=== PATIENT | male | born 1965 | race Two or more races ===

== ENCOUNTER 2017-09-30 01:57 | Inpatient (IN) | payer MEDICARE, MEDICAID ==
[~2017-09-30] VITALS: Ht 180.3 cm; Wt 104.3 kg
--- NOTE | 2017-09-30 05:15 | NUR ---
GPS POWER SHEAR OPERATOR NOTES: ADMITTED A 52YO MALE FROM [facility] ON 5150 HOLD FOR DANGER TO SELF. PER HOLD, PATIENT HAS HISTORY OF PSYCH ILLNESS , HAD A PSYCH HOLD 2 WEEKS AGO, COCAINE USE USE, IS HOMELESS, FEELS DEPRESSED, HOPELESS AND TRIED TO OVERDOSE ON MEDICATIONS. PATIENT IS UNDER THE CARE OF DR. MALONE AND DR. GARCIA. PATIENT USHERED TO BED. UPON FACE TO FACE ASSESSMENT, PATIENT PRESENTS ALERT AND ORIENTED X2-3, QUIET, DEPRESSED, TALKS MINIMALLY. APPEARS DISHEVELED AND UNKEMPT. PATIENT REQUESTED FOR FOOD, OFFERED KARI CRACKERS AND MILK, HOWEVER PATIENT REFUSED HE WANTS SOME REAL FOOD. PATIENT NOTED TO BE AGITATED THIS TIME. LIMIT SETTING DONE. REALITY ORIENTATION DONE. PATIENT ADDED, "I AM NOT SIGNING ANY PAPERS UNLESS I EAT" SKIN AND BODY ASSESSMENT- PATIENT REFUSED. PATIENT STATED, "I WILL LET YOU DO IT, UNLESS I EAT ALREADY.PATIENT ALSO REFUSED MRSA SWAB. PATIENT ORIENTED TO UNIT, STAFF, CARE PLAN, HOWEVER PATIENT PRESENTED A BLUNTED AFFECT. GIVEN PATIENT SOME PRIVACY AND QUIET. Q15 MIN CHECK INITIATED. CARE PLAN ACKNOWLEDGED AND INITIATED-SPECIFIC FOR PATIENT. ENVIRONMENTAL SAFETY CHECK DONE. WILL MONITOR PATIENT FOR MOOD, SAFETY AND BEHAVIOR. WILL ENDORSE PATIENT TO DAYSHIFT NURSE.
[2017-09-30] MEDS ORDERED: MAG HYDROX/AL HYDROX/SIMETH 30 ML UDC PO PRN (06:00)
[2017-09-30] MEDS ORDERED: MAGNESIUM HYDROXIDE 30 ML UDC PO PRN (06:00)
[2017-09-30] MEDS ORDERED: LORAZEPAM 0.5 MG TABLET PO PRN (06:00)
[2017-09-30] MEDS ORDERED: ACETAMINOPHEN 325 MG TABLET PO PRN (06:00)
[2017-09-30 06:34] VITALS: BP 109/64
[2017-09-30 09:38] VITALS: BP 177/66
[2017-09-30] MEDS: BENZTROPINE MESYLATE (1 MG) 1 MG TABLET PO SCH ×2 (13:20→16:47)
[2017-09-30] MEDS: ZIPRASIDONE 20 MG CAPSULE PO SCH ×2 (13:20→16:47)
[2017-09-30 16:00] VITALS: BP 128/66
--- NOTE | 2017-09-30 19:30 | NUR ---
GPS RN NOTE, RECEIVED PATIENT AWAKE AND IN BED, NO S/S OR COMPLAINTS OF PAIN AT THIS TIME. PATIENT DISPLAYING NO S/S OF APPARENT DISTRESS AT THIS TIME. PATIENT BREATHING IS UNLABORED WITH EQUAL RISE AND FALL OF THE CHEST. PATIENT IS ALERT AND ORIENTED X 3 ON ROOM AIR WITH A SPO2 98 %. PATIENT IS MED COMPLIANT, CALM, COOPERATIVE, AND NEEDS REORIENTATION AT TIMES. PATIENT DENIES SI AND HI AT THIS TIME. PATIENT ASSISTED WITH TURNING AND REPOSITIONING Q2HR AND PRN FOR COMFORT AND CIRCULATION. PATIENT HAS NO NEEDS AT THIS TIME. PATIENT EDUCATED ON THE USE OF THE CALL MCCARTHY. PATIENT BED SIDE RAILS UP X 2 FOR SAFETY, BED IS LOCKED AND LOW, WILL CONTINUE TO MONITOR THIS PATIENT WITH THE HELP OF STAFF.
[2017-09-30 19:44] VITALS: BP 122/69
[2017-09-30] MEDS: MIRTAZAPINE 15 MG TABLET PO SCH (22:05)
[2017-09-30] MEDS: ZOLPIDEM TARTRATE 5 MG TABLET PO PRN (22:09)
--- NOTE | 2017-09-30 22:09 | NUR ---
GPS RN NOTE, PATIENT HAS A COMPLAINT OF NOT BEING ABLE TO SLEEP AND IS REQUESTING AMBIEN AT THIS TIME. PATIENT VITAL SIGNS ARE STABLE. GAVE AMBIEN 5MG PO HS ORDERED. WILL REASSESS FOR INSOMNIA AND I WILL CONTINUE TO MONITOR THIS PATIENT.
[2017-10-01 08:00] VITALS: BP 104/75
[2017-10-01 08:54] LABS: BASOPHILS % (AUTO) 0.6 % (0.0-2.0); EOSINOPHILS # (AUTO) 0.1 /CMM (0.0-0.7); EOSINOPHILS % (AUTO) 2.4 % (0.0-6.0); HEMATOCRIT 41 % (39-51); HEMOGLOBIN 13.7 g/dL (13.5-17.5); LYMPHOCYTES # (AUTO) 1.5 /CMM (0.8-4.8); LYMPHOCYTES % (AUTO) 31.2 % (20.0-44.0); MEAN CORPUSCULAR HEMOGLOBIN 28 PG (26.0-33.0); MEAN CORPUSCULAR HGB CONC 34 g/dl (31.0-36.0); MEAN CORPUSCULAR VOLUME 85 fL (80-96); MONOCYTES # (AUTO) 0.4 /CMM (0.1-1.30); MONOCYTES % (AUTO) 8.3 % (2.0-12.0); NEUTROPHILS # (AUTO) 2.8 /CMM (1.8-8.9); NEUTROPHILS % (AUTO) 57.5 % (43.0-81.0); PLATELET COUNT (AUTO) 340 /CMM (150-450); RDW COEFFICIENT OF VARIATION 14.3 (11.5-15.0); RED BLOOD CELL COUNT(AUTO) 4.84 MIL/uL (4.5-6.0); WHITE BLOOD COUNT (AUTO) 4.8 K/uL (4.3-11.0)
[2017-10-01 08:56] LABS: ALBUMIN 3.3 g/dL (3.4-5.0); BILIRUBIN,TOTAL 0.3 mg/dL (0.2-1.0); CALCIUM, SERUM 8.7 mg/dL (8.5-10.1); CREATININE 1.1 mg/dL (0.6-1.3); TOTAL PROTEIN, SERUM 7.4 g/dL (6.4-8.2)
[2017-10-01] MEDS: BENZTROPINE MESYLATE (1 MG) 1 MG TABLET PO SCH ×3 (09:29→16:06)
[2017-10-01] MEDS: ZIPRASIDONE 20 MG CAPSULE PO SCH ×2 (09:29→16:06)
[2017-10-01 16:25] VITALS: BP 118/90
[2017-10-01 20:16] VITALS: BP 133/76
[2017-10-01] MEDS: MIRTAZAPINE 15 MG TABLET PO SCH (22:00)
[2017-10-01] MEDS: ZOLPIDEM TARTRATE 5 MG TABLET PO PRN (22:18)
[2017-10-02 08:00] VITALS: BP 117/85
[2017-10-02] MEDS: ZIPRASIDONE 20 MG CAPSULE PO SCH ×2 (08:24→16:13)
[2017-10-02] MEDS: BENZTROPINE MESYLATE (1 MG) 1 MG TABLET PO SCH ×3 (08:24→16:13)
[2017-10-02 15:51] VITALS: BP 123/78
[2017-10-02 20:13] VITALS: BP 126/76
[2017-10-02] MEDS: MIRTAZAPINE 15 MG TABLET PO SCH (22:04)
[2017-10-02] MEDS: ZOLPIDEM TARTRATE 5 MG TABLET PO PRN (22:06)
[2017-10-03 08:00] VITALS: BP 120/74
[2017-10-03] MEDS: ZIPRASIDONE 20 MG CAPSULE PO SCH ×2 (08:28→16:47)
[2017-10-03] MEDS: BENZTROPINE MESYLATE (1 MG) 1 MG TABLET PO SCH ×3 (08:28→16:46)
--- NOTE | 2017-10-03 15:53 | NUR ---
Initial Discharge: Pt reports being homeless. Pt has no telephone #. Pt denies having any family to contact for support. Pt agrred to locating placement upon discharge. SW will follow up to evaluate his options.
[2017-10-03 15:57] VITALS: BP 106/67
--- NOTE | 2017-10-03 17:19 | NUR ---
RN Note: Patient states he is anxious and nervous. ativan 05.mg given for anxiety.
[2017-10-03 20:00] VITALS: BP 99/57
[2017-10-03] MEDS: MIRTAZAPINE 15 MG TABLET PO SCH (21:02)
[2017-10-03] MEDS: ZOLPIDEM TARTRATE 5 MG TABLET PO PRN (21:50)
[2017-10-04 08:00] VITALS: BP 104/65
[2017-10-04] MEDS: BENZTROPINE MESYLATE (1 MG) 1 MG TABLET PO SCH ×2 (08:26→12:08)
[2017-10-04] MEDS: ZIPRASIDONE 20 MG CAPSULE PO SCH (08:26)
--- NOTE | 2017-10-04 10:16 | NUR ---
Rn note: patient states he has neck pain when he walks around. 3/10 pain. acetaminophen 650 mg given.
--- NOTE | 2017-10-04 13:00 | NUR ---
RN-CO: Patient is alert and oriented x4, able to make decision, ambulatory and self care. Upon face to face assessment, he denied suicidal and homicidal ideation. Denied auditory and visual hallucination. Calm , and compliant with medications.
--- NOTE | 2017-10-04 14:00 | NUR ---
RN-CO: DR MALONE SEEN AND EXAMINED THE PATIENT AND ORDERED TO DISCONTINUE HOLD AND DISCHARGE THE PATIENT TODAY, NOTED. DEISY ARECHIGA ROUGH CARPENTER MEDICALLY CLEAR THE PATIENT FOR DISCHARGE.
--- NOTE | 2017-10-04 15:08 | NUR ---
RN-CO: Patient refused placement, he stated " I will go to [facility] for check up and I will look for a snf. " I don't need prescription from the psychiatrist." "I refused to have the discharge paper works , It's just junk and I'll throw it anyway." " I just need tokens to go to [facility]." I am not suicidal and I am never homicidal." Dr Patricia made aware. Patient's affect is appropriate.
--- NOTE | 2017-10-04 15:15 | NUR ---
RN-CO: Patient was provided list and addresses and contact number of shelters. Token given. All belongings given back to the patient
--- NOTE | 2017-10-04 15:25 | NUR ---
RN NOTE: PATIENT STATES HE WANTS TO LEAVE. HE STATES HE WILL GO TO [facility] AND THEN TO THE GROUP HOME.
--- NOTE | 2017-10-04 15:40 | NUR ---
RN-CO: PATIENT WAS ESCORTED BY STAFF TO THE LOBBY WITH ALL HIS BELONGINGS AND TOKENS. WE PROVIDED HIM THE COPY OF THE SHELTERS.
--- NOTE | 2017-10-04 16:22 | NUR ---
Discharge Planning: ALMA ROSA faxed inquiry to [facility] for discharge planning purposes. Pt has been cleared for discharge. ALMA ROSA coordinated for Johnny from [facility] to come and assess pts appropriateness for their facility on this date. Pt agreed to be discharged on this day to the facility. ALMA ROSA will make arrangements in order to discharge pt to facility on this date.
--- NOTE | 2017-10-04 16:31 | NUR ---
Discharge Note: ALMA ROSA made arrangements with [facility] to transport pt to [facility], [facility] [address] [place] [address] today at 4pm (trip number [id number]). Addendum: 10/04/17 at [address] Discharge Planning:
--- NOTE | 2017-10-04 16:37 | NUR ---
Discharge Note: ALMA ROSA met with pt to inform him of the discharge plans (i.e. ambulance arriving at 4pm to transport him to [facility]) at which time pt refused to go. Pt reported to ALMA ROSA, "I don't want to go to that place." Pt was adamant about going to [facility]. Pt asked, "Just let me out to the streets, that's where I want to go." ALMA ROSA attempted to persuade pt to give the SNF an opportunity and if he did not like it, it was up to him to remain there. Pt refused and stated, "You're not gonna get me to go there." SW explored winter shelters in the area as an alternative (which pt denied). ALMA ROSA informed pt that [facility] rehab staff would be willing to take pt to look for his wallet once he was settled at the facility (pt believes his wallet was left at the [facility]), per their reports. Pt adamantly refused and stated, "I'm not going there." Pt was discharged around 3pm and provided with 2 bus tokens (i.e. for the nearest long term pick pulling machine operator location; Bus stop, [address] which he accepted. Pt also signed the homeless waiver. Pt was also provided with the following resources: [facility] [id number] Schedule, [facility], [address] [facility] [address]; , [facility] (chemical dependency Prog) [address] [place] [place] [address]; and [facility] (addiction and drug rehab centers) [facility] [address] [place] [address]; and [facility], [address] [facility]. [address] [facility] [id number] . Copies were provided and accepted by pt. Pt agreed to utilize the referrals that were provided to him if he needed them.
== END 2017-10-04 15:40 | disposition home or self-care (01) | DRG 885 ==
LOC: GPS 05:09
PROVIDERS: ADMIT Psychiatry & Neurology Psychosomatic Medicine; ATTEND Internal Medicine
DX: F20.9 Schizophrenia, unspecified (principal); F33.0 Major depressive disorder, recurrent, mild; Z73.6 Limitation of activities due to disability; G24.01 Drug induced subacute dyskinesia; T40.5X5A Adverse effect of cocaine, initial encounter; Y92.89 Other specified places as the place of occurrence of the external cause; Z91.5 Personal history of self-harm; Z59.0 Homelessness
CPT/HCPCS: 36415; 80053-TC; 80061-TC; 85025-TC; Z7610

== ENCOUNTER 2019-01-07 16:58 | Inpatient (IN) | payer MEDICARE, MEDICAID ==
[~2019-01-07] VITALS: Ht 182.9 cm; Wt 113.4 kg
--- NOTE | 2019-01-07 18:53 | NUR ---
CALLED FOR TRIAGE NOT IN THE WAITING ROOM.
--- NOTE | 2019-01-07 19:02 | NUR ---
CALLED FOR TRIAGE NOT IN THE WAITING ROOM
[2019-01-07] MEDS ORDERED: diphenhydrAMINE HCL 50 MG/ML VIAL IM ONE (20:00)
[2019-01-07] MEDS ORDERED: diphenhydrAMINE HCL 50 MG/ML VIAL ONE (20:01)
[2019-01-07 20:25] LABS: BASOPHILS % (AUTO) 0.5 % (0.0-2.0); EOSINOPHILS % (AUTO) 1.9 % (0.0-6.0); HEMATOCRIT 40 % (39-51); HEMOGLOBIN 13.1 g/dL (13.5-17.5); LYMPHOCYTES # (AUTO) 2.1 /CMM (0.8-4.8); LYMPHOCYTES % (AUTO) 29.9 % (20.0-44.0); MEAN CORPUSCULAR HGB CONC 33 g/dl (31.0-36.0); MEAN CORPUSCULAR VOLUME 86 fL (80-96); MONOCYTES # (AUTO) 0.6 /CMM (0.1-1.30); MONOCYTES % (AUTO) 8.5 % (2.0-12.0); NEUTROPHILS # (AUTO) 4.2 /CMM (1.8-8.9); NEUTROPHILS % (AUTO) 59.2 % (43.0-81.0); PLATELET COUNT (AUTO) 268 /CMM (150-450); RED BLOOD CELL COUNT(AUTO) 4.65 MIL/uL (4.5-6.0)
[2019-01-07 20:32] LABS: CALCIUM, SERUM 8.4 mg/dL (8.5-10.1); CARBON DIOXIDE 28 mmol/L (21-32); CHLORIDE 107 mmol/L (98-107); CREATININE 1.2 mg/dL (0.6-1.3); GLUCOSE 77 mg/dL (74-106); POTASSIUM 3.9 mmol/L (3.5-5.1); SODIUM SERUM 140 mmol/L (136-145); UREA NITROGEN, BLOOD 24 mg/dL (7-18)
[2019-01-07 20:38] LABS: ALANINE AMINOTRANSFERASE 38 U/L (12-78); ALBUMIN 3.7 g/dL (3.4-5.0); ALKALINE PHOSPHATASE 61 U/L (46-116); ASPARTATE AMINOTRANSFERASE 27 U/L (15-37); BILIRUBIN,DIRECT 0.1 mg/dL (0.0-0.2); BILIRUBIN,TOTAL 0.3 mg/dL (0.2-1.0); TOTAL PROTEIN, SERUM 7.4 g/dL (6.4-8.2)
[2019-01-07 20:40] LABS: ACETAMINOPHEN 0 ug/ml (10-30); ALCOHOL, BLOOD < 3 mg/dL (0-0); SALICYLATE 0.8 mg/dL (2.8-20.0)
[2019-01-07 21:07] LABS: APPEARANCE,URINE Clear (CLEAR); BILIRUBIN,URINE Negative (NEGATIVE); BLOOD, URINE Negative Ery/uL (NEGATIVE); COLOR,URINE Yellow (YELLOW); KETONES,URINE Trace (NEGATIVE); LEUKOCYTE ESTERASE ,URINE Negative (NEGATIVE); NITRITE, URINE Negative (NEGATIVE); PH,URINE 6.5 (5.0-8.0); PROTEIN,URINE Negative (NEGATIVE); UGLUCOSE Negative (NEGATIVE)
[2019-01-07] MEDS ORDERED: ZIPR60CA2 PO (22:22)
--- NOTE | 2019-01-07 22:49 | NUR ---
report given for conitnuation of care to gps rn .
--- NOTE | 2019-01-07 23:15 | NUR ---
GPS-PIPE BENDING MACHINE OPERATOR NOTES: ADMITTED A 53 YR-OLD, MALE, HOMELESS, ADMITTED ON 5150 FOR DTS. PER HOLD, PATIENT COMPLAINING OF SUICIDAL IDEATION. PATIENT STATED "I'M NOT DOING WELL VOICES ARE TELLING ME TO TAKE MY LIFE PATIENT HAS A PLAN TO SHOOT HIMSELF WITH A GUN. NON-COMPLIANT WITH MEDICATIONS. UPON FACE TO FACE ASSESSMENT, PATIENT IS ALERT, ORIENTED X3, DEPRESSED, QUIET, INTERACTS WHEN ENGAGED, DENIES SI/HI AT THIS TIME. PATIENT STILL HEARING VOICES, DAUGHTER WAS TELLING HIM SHE'S . REALITY ORIENTATION PROVIDED. AMBULATES INDEPENDENTLY. IN NO APPARENT DISTRESS NOTED. NO C/O PAIN OR DISCOMFORT NOTED. BELONGINGS WERE INVENTORIED AND CHECKED FOR CONTRABAND. PT. IS UNDER THE PSYCHIATRIC CARE OF DR. ORTEGA ORDERS OBTAINED, AND UNDER THE MEDICAL CARE OF MILTON CUEVAS NOTIFIED OF PT'S ADMISSION. SKIN IS INTACT. NO FAMILY TO NOTIFY. BED LOCKED AND PLACED ON LOWEST POSITION TO MAINTAIN SAFETY. FALL PRECAUTIONS IMPLEMENTED. WILL CONTINUE TO MONITOR Q15 MINS. FOR SAFETY AND BEHAVIOR.
[2019-01-07 23:30] VITALS: BP 108/66
[2019-01-08] MEDS ORDERED: MAG HYDROX/AL HYDROX/SIMETH 30 ML UDC PO PRN
[2019-01-08] MEDS ORDERED: MAGNESIUM HYDROXIDE 30 ML UDC PO PRN
[2019-01-08] MEDS ORDERED: ACETAMINOPHEN 325 MG TABLET PO PRN
[2019-01-08] MEDS ORDERED: BENZ1TAB7 PO (02:33)
[2019-01-08 08:00] VITALS: BP 108/71
[2019-01-08 08:17] LABS: CHOLESTEROL 126 mg/dL (<200); HDL CHOLESTEROL 52 mg/dL (40-60); LDL 74 mg/dL (0-99); TRIGLYCERIDES 45 mg/dL (30-150)
[2019-01-08] MEDS ORDERED: ZIPRASIDONE 20 MG CAPSULE PO SCH (09:30)
--- NOTE | 2019-01-08 10:23 | NUR ---
SW received a call from Rowan, suicide laboratory coordinator at [facility] Address: [address], [place] [address] ex:[phone] to inform SW that pt has been flagged as a high risk suicide patient and stated that she would like to be notified of pts discharge.
[2019-01-08] MEDS: BENZTROPINE MESYLATE (1 MG) 1 MG TABLET PO SCH ×2 (10:34→16:44)
[2019-01-08] MEDS: ZIPRASIDONE 20 MG CAPSULE PO SCH ×2 (10:34→16:44)
--- NOTE | 2019-01-08 12:03 | NUR ---
INITIAL DISCHARGE PLAN: Pt needs placement. SW will help form a safe and proper discharge in collaboration with MD.
[2019-01-08 16:00] VITALS: BP 119/67
--- NOTE | 2019-01-08 19:42 | NUR ---
recieved patient in bed eyes closed appears asleep
[2019-01-08 20:00] VITALS: BP 105/55
[2019-01-08] MEDS: TEMAZEPAM 7.5 MG CAPSULE PO PRN (21:52)
--- NOTE | 2019-01-09 05:12 | NUR ---
CLOSING NOTES: ASLEEP AT THIS TIME. AWAKE AT 2AM AND AMBULATED 1X AROUND THE HALLWAY AND THEN WENT BACK TO BED. SLEPT 9 HOURS OF THE NIGHT. WEARS EYEGLASSES NOTED SLEEPS WITH THEM ON.
[2019-01-09 08:00] VITALS: BP 109/65
[2019-01-09] MEDS: ZIPRASIDONE 20 MG CAPSULE PO SCH ×2 (08:18→16:46)
[2019-01-09] MEDS: BENZTROPINE MESYLATE (1 MG) 1 MG TABLET PO SCH ×2 (08:18→16:45)
[2019-01-09] MEDS: LORAZEPAM 0.5 MG TABLET PO PRN (18:10)
--- NOTE | 2019-01-09 18:18 | NUR ---
GPS/RN-NOTES PATIENT IN THE DAY ROOM WATCHING TV. STATED" CAN I HAVE ATIVAN I'M ANXIOUS". ATIVAN 0.5MG P.O GIVEN PRN ORDERED. WILL ENDORSE TO INCOMING NURSE FOR CONTINUITY OF CARE.
[2019-01-09 20:00] VITALS: BP 110/54
[2019-01-09] MEDS: TEMAZEPAM 7.5 MG CAPSULE PO PRN (21:06)
[2019-01-10 08:00] VITALS: BP 104/58
[2019-01-10] MEDS: ZIPRASIDONE 20 MG CAPSULE PO SCH ×2 (08:24→17:07)
[2019-01-10] MEDS: BENZTROPINE MESYLATE (1 MG) 1 MG TABLET PO SCH ×2 (08:25→17:07)
[2019-01-10 16:00] VITALS: BP 110/52
[2019-01-10 20:00] VITALS: BP 107/65
[2019-01-10] MEDS: LORAZEPAM 0.5 MG TABLET PO PRN (20:58)
[2019-01-10] MEDS: TEMAZEPAM 7.5 MG CAPSULE PO PRN (22:18)
[2019-01-11 08:00] VITALS: BP 102/52
[2019-01-11] MEDS: BENZTROPINE MESYLATE (1 MG) 1 MG TABLET PO SCH ×2 (08:53→17:17)
[2019-01-11] MEDS: ZIPRASIDONE 20 MG CAPSULE PO SCH ×2 (08:57→17:18)
[2019-01-11 16:00] VITALS: BP 117/70
[2019-01-11 19:50] VITALS: BP 129/70
[2019-01-11] MEDS: LORAZEPAM 0.5 MG TABLET PO PRN (19:55)
[2019-01-11] MEDS: TEMAZEPAM 7.5 MG CAPSULE PO PRN (22:49)
[2019-01-12 08:00] VITALS: BP 154/66
[2019-01-12] MEDS: ZIPRASIDONE 20 MG CAPSULE PO SCH ×2 (08:35→16:29)
[2019-01-12] MEDS: BENZTROPINE MESYLATE (1 MG) 1 MG TABLET PO SCH ×2 (08:35→16:30)
--- NOTE | 2019-01-12 09:43 | NUR ---
SNF REFERRAL: SW faxed SNF referral to TORIBIO, admissions consultant at [facility] Address: [address] [place] [address] for review.
--- NOTE | 2019-01-12 10:34 | NUR ---
SW received call from TORIBIO, wardrobe coordinator at [facility] Address: [address] [place] [address] stating pt has been accepted to their facility with SI clearance.
--- NOTE | 2019-01-12 14:05 | NUR ---
ALMA ROSA received a phone call from Gabby Padgett from [facility] [phone] stating pt is currently on parole and has an ankle monitor due to failure to register as a sex offender. Per Gabby Padgett pt was placed on a sex offenders list due to indecent exposure and has been on [place] since 10/16/18. ALMA ROSA informed him that pt has been accepted to [facility] and will notify him as soon as ALMA ROSA has a D/C order.
[2019-01-12 16:00] VITALS: BP 100/56
[2019-01-12 20:18] VITALS: BP 110/55
[2019-01-12] MEDS: LORAZEPAM 0.5 MG TABLET PO PRN (20:20)
[2019-01-12] MEDS: TEMAZEPAM 7.5 MG CAPSULE PO PRN (22:48)
[2019-01-13 08:00] VITALS: BP 134/90
[2019-01-13] MEDS: BENZTROPINE MESYLATE (1 MG) 1 MG TABLET PO SCH ×2 (08:35→16:36)
[2019-01-13] MEDS: ZIPRASIDONE 20 MG CAPSULE PO SCH ×2 (08:35→16:37)
--- NOTE | 2019-01-13 15:24 | NUR ---
SUPPORTIVE COUNSELING: SW spoke with pt regarding his discharge pt agrees to be discharged to a SNF and also stated he no longer had suicidal/homicidal ideations. Pt also denied visual/auditory hallucinations but SW has observed pt responding to internal stimuli pt has been talking to himself. Pt is isolated and withdrawn but does go to activity room and watches TV or reads a book. Pt has not attended group therapy.
[2019-01-13 16:00] VITALS: BP 125/68
[2019-01-13 20:03] VITALS: BP 98/57
[2019-01-13] MEDS: TEMAZEPAM 7.5 MG CAPSULE PO PRN (23:59)
--- NOTE | 2019-01-14 00:02 | NUR ---
GPS RN NOTE, PATIENT HAS A COMPLAINT OF NOT BEING ABLE TO SLEEP AND IS REQUESTING RESTORIL AT THIS TIME. PATIENT VITAL SIGNS ARE STABLE. GAVE RESTORIL 7.5MG PO HS PRN ORDERED. WILL REASSESS FOR ANXIETY AND I WILL CONTINUE TO MONITOR THIS PATIENT.
[2019-01-14 08:00] VITALS: BP 135/64
[2019-01-14] MEDS: BENZTROPINE MESYLATE (1 MG) 1 MG TABLET PO SCH ×2 (08:07→16:36)
[2019-01-14] MEDS: ZIPRASIDONE 20 MG CAPSULE PO SCH ×2 (08:07→16:35)
--- NOTE | 2019-01-14 15:50 | NUR ---
GROUP THERAPY: SW encouraged pt to attend group therapy, pt stated he wanted to stay in his room. Pt has been withdrawn and isolated and has not been seen interacting with others on this present day.
[2019-01-14 16:00] VITALS: BP 111/67
[2019-01-14 20:00] VITALS: BP 110/60
[2019-01-14] MEDS: TEMAZEPAM 7.5 MG CAPSULE PO PRN (23:29)
--- NOTE | 2019-01-15 06:43 | NUR ---
DR. ORTEGA GAVE AN ORDER TO D/C HOLD AND D/C TO [facility], TO CONTINUE SAME MEDS INCLUDING PRN AND TO FOLLOW UP WITH PSYCH AND MEDICAL DOCTORS.
[2019-01-15 08:00] VITALS: BP 117/59
[2019-01-15] MEDS: BENZTROPINE MESYLATE (1 MG) 1 MG TABLET PO SCH (08:37)
[2019-01-15] MEDS: ZIPRASIDONE 20 MG CAPSULE PO SCH (08:37)
--- NOTE | 2019-01-15 11:09 | NUR ---
DISCHARGE NOTE: Pt will be discharged at 12:30pm via [facility] trip#[phone] to [facility] Address: [address] [place] [address] . Pts has no family to notify. Pts mood is euthymic with congruent affect. Pt denied visual/auditory hallucination and denied suicidal/homicidal ideation. Pt will address his substance use and continue psychiatric treatment with Psychiatrist: Dr. Raya Address: [address] [place] [address] pt will also be under the care of [employer]lower [employer] Laborer/Designer: Dr Giordano Address: [address] [address] [phone]. For smoking cessation, patient was referred to the [employer] and [employer] [id number]. Pt will also participate in a telephone meeting with [employer] [phone] on Wednesday January 16, 2019 at 8:00am. The multidisciplinary exitcare form was done, printed, signed, and given to the patient. Addendum: 01/15/19 at 1246 by ARMIDA TS ALMA ROSA received a phone call from TORIBIO, case management coordinator at [facility] stating that pt was denied due to him having an ankle bracelet and being on parole. Pt was discharged to [facility] Address: [address] [place] [address] . No family to notify. Psychiatrist: Dr. John Armstrong [address], [place] [address] [phone] Flower Shop Laborer/Designer: Dr. Brian Moore [address], [place] [address] [phone].
--- NOTE | 2019-01-15 11:09 | NUR ---
ALMA ROSA contacted Agent Dayron from [facility] [phone] and left a voicemail informing him pt was being discharged on this present day to [facility].
--- NOTE | 2019-01-15 12:48 | NUR ---
ALMA ROSA contacted Agent Dayron from [facility] [phone] and left a voicemail informing him pt was being discharged to [facility] instead of [facility].
--- NOTE | 2019-01-15 13:23 | NUR ---
RN NOTE: PATIENT DC @ 13:00 VIA GURNEY VIA AMBULANCE TO [facility]. [address] [place] [address]. REPORT WAS GIVEN TO KAELA [phone]. PATIENT WAS ALERT AND ORIENTED X3 AT THE TIME OF DISCHARGE. NO DISTRESS NOTED. VS STABLE. NO COMPLAINTS. DENIES SI/HI AT TIME OF DC. DC ORDER WAS GIVEN BY DR. EDUARDO. PATIENT IS MEDICALLY STABLE FOR DC BY DR. POLO. PATIENT WAS COOPERATIVE WITH THE DC PROCESS. SKIN CHECK WAS REFUSED. BELONGINGS RETURNED TO PATIENT. REPORT GIVEN TO EMT.
--- NOTE | 2019-02-02 14:27 | NUR ---
SUBSTANCE ABUSE FOLLOW UP: Pt excluded due to D/C to SNF.
== END 2019-01-15 13:00 | DRG 885 ==
LOC: ER 17:00 → GPS 22:36
PROVIDERS: ADMIT Psychiatry & Neurology Psychiatry; ATTEND Nurse Practitioner Acute Care
DX: F20.0 Paranoid schizophrenia (principal); N17.9 Acute kidney failure, unspecified; F29 Unspecified psychosis not due to a substance or known physiological condition; F43.10 Post-traumatic stress disorder, unspecified; Z68.33 Body mass index [BMI] 33.0-33.9, adult; E66.9 Obesity, unspecified; Z59.0 Homelessness; F14.10 Cocaine abuse, uncomplicated; F17.210 Nicotine dependence, cigarettes, uncomplicated; G24.01 Drug induced subacute dyskinesia; T43.4X Poisoning by, adverse effect of and underdosing of butyrophenone and thiothixene neuroleptics
CPT/HCPCS: 36415; 80048-TC; 80061-TC; 80076-TC; 80305; 81000-TC; 85025-TC; 87081-TC; G0480; J1200

== ENCOUNTER 2019-11-17 01:23 | Emergency (ER) | payer MEDICAID, MEDICARE ==
[~2019-11-17] VITALS: Ht 175.3 cm; Wt 99.8 kg
--- NOTE | 2019-11-17 01:25 | NUR ---
Salazar aguiar in ED - 11/17/19 at 0441 by SUDHAKAR PT NOW REPORTS SI WITH PLAN TO WALK INTO TRAFFIC TO ER MD
--- NOTE | 2019-11-17 02:00 | NUR ---
TO ER BED 12 AMBULATORY C/O SI WITH PLAN TO CHOKE SELF WITH BELT. PT AAOX4 NO ACUTE DISTRESS NOTED, RESP EVEN AND UNLABORED. PT CALM AND COOPERATIVE AT THIS TIME. PENDING ER MD FRAUSTO.
--- NOTE | 2019-11-17 02:16 | NUR ---
PT NOW REPORTS SI WITH PLAN TO WALK INTO TRAFFIC TO ER MD. PT REQUESTING ANN.
--- NOTE | 2019-11-17 02:31 | NUR ---
TYPING POOL SUPERVISOR AT BEDSIDE FOR BLOOD DRAW.
[2019-11-17] MEDS ORDERED: BENZTROPINE MESYLATE (1 MG) 1 MG TABLET ONE (02:40)
--- NOTE | 2019-11-17 02:51 | NUR ---
URINE SAMPLE COLLECTED AND SENT TO LAB.
[2019-11-17] MEDS ORDERED: LORAZEPAM 1 MG TABLET ONE (02:56)
--- NOTE | 2019-11-17 02:58 | NUR ---
PT MEDICATED PER ER MD ORDER.
[2019-11-17] MEDS ORDERED: BENZTROPINE MESYLATE (1 MG) 1 MG TABLET PO ONE (03:00)
[2019-11-17] MEDS ORDERED: LORAZEPAM 1 MG TABLET PO ONE (03:00)
[2019-11-17 03:11] LABS: BASOPHILS % (AUTO) 0.5 % (0.0-2.0); HEMATOCRIT 40 % (39-51); HEMOGLOBIN 12.7 g/dL (13.5-17.5); LYMPHOCYTES # (AUTO) 2.3 /CMM (0.8-4.8); LYMPHOCYTES % (AUTO) 31.9 % (20.0-44.0); MEAN CORPUSCULAR HGB CONC 32 g/dl (31.0-36.0); MEAN CORPUSCULAR VOLUME 85 fL (80-96); MONOCYTES % (AUTO) 13.6 % (2.0-12.0); NEUTROPHILS # (AUTO) 3.8 /CMM (1.8-8.9); PLATELET COUNT (AUTO) 343 /CMM (150-450); WHITE BLOOD COUNT (AUTO) 7.2 K/uL (4.3-11.0)
[2019-11-17 03:13] LABS: APPEARANCE,URINE CLEAR (CLEAR); BILIRUBIN,URINE NEGATIVE (NEGATIVE); BLOOD, URINE NEGATIVE Ery/uL (NEGATIVE); COLOR,URINE YELLOW (YELLOW); KETONES,URINE NEGATIVE (NEGATIVE); LEUKOCYTE ESTERASE ,URINE NEGATIVE (NEGATIVE); NITRITE, URINE NEGATIVE (NEGATIVE); PROTEIN,URINE NEGATIVE (NEGATIVE); UGLUCOSE NEGATIVE (NEGATIVE)
[2019-11-17 03:24] LABS: CALCIUM, SERUM 8.6 mg/dL (8.5-10.1); CARBON DIOXIDE 26 mmol/L (21-32); CHLORIDE 105 mmol/L (98-107); CREATININE 1.1 mg/dL (0.6-1.3); GLUCOSE 94 mg/dL (74-106); POTASSIUM 3.9 mmol/L (3.5-5.1); SODIUM SERUM 140 mmol/L (136-145); UREA NITROGEN, BLOOD 11 mg/dL (7-18)
[2019-11-17 03:29] LABS: ALANINE AMINOTRANSFERASE 28 U/L (12-78); ALBUMIN 3.2 g/dL (3.4-5.0); ALCOHOL, BLOOD < 3 mg/dL (0-0); ALKALINE PHOSPHATASE 43 U/L (46-116); ASPARTATE AMINOTRANSFERASE 25 U/L (15-37); BILIRUBIN,DIRECT 0.1 mg/dL (0.0-0.2); BILIRUBIN,TOTAL 0.4 mg/dL (0.2-1.0); TOTAL PROTEIN, SERUM 7.2 g/dL (6.4-8.2)
[2019-11-17 03:32] LABS: ACETAMINOPHEN 0 ug/ml (10-30); SALICYLATE 0.6 mg/dL (2.8-20.0)
--- NOTE | 2019-11-17 03:58 | NUR ---
PT MEDICALLY CLEARED FOR VOLUNTARY PSYCH ADMISSION PER ER MD FELDER. WILL FAX CLINICAL TO [facility].
--- NOTE | 2019-11-17 04:10 | NUR ---
CLINICAL FAXED TO [facility] FOR VOLUNTARY ADMISSION.
--- NOTE | 2019-11-17 04:47 | NUR ---
PT ASLEEP, NO ACUTE DISTRESS NOTED, RESP EVEN AND UNLABORED. CALL LIGHT WITHIN REACH. WILL CONTINUE TO MONITOR PT CLOSELY.
--- NOTE | 2019-11-17 07:03 | NUR ---
PT IS ACCEPTED AT [facility] # FOR REPORT: [phone] ACCEPTING MD: DR. GLEASON
--- NOTE | 2019-11-17 07:15 | NUR ---
CALLED [facility] AND ATRRANGED TRANSPORTATION . ETA [phone]
[2019-11-17 08:46] VITALS: BP 121/64
== END 2019-11-17 08:47 ==
LOC: ER 01:24
DX: F32.9 Major depressive disorder, single episode, unspecified (principal); R45.851 Suicidal ideations; G24.01 Drug induced subacute dyskinesia; F14.10 Cocaine abuse, uncomplicated; F43.10 Post-traumatic stress disorder, unspecified; F20.9 Schizophrenia, unspecified; Z88.8 Allergy status to other drugs, medicaments and biological substances; Z60.2 Problems related to living alone
CPT/HCPCS: 36415; 80048; 80076; 80305; 80307; 80329; 81001; 85025; 99285; G0480; 81000-TC

== ENCOUNTER 2020-03-29 13:41 | Emergency (ER) | payer MEDICARE, MEDICAID ==
[~2020-03-29] VITALS: Ht 175.3 cm; Wt 100.7 kg
--- NOTE | 2020-03-29 14:01 | NUR ---
JENNIFER FROM [facility] (PT IS NOT ADMITTED JUST WALKED IN) TO ER BED 13. AAOX4. NOT IN RESP DISTRESS. CAME IN FOR INVOLUNTARY MOVEMENT. PT IS NOTED WITH TARDIVE DYSKENISIA. TAMMIE AT THE BEDSIDE FOR EVAL. ORDERS RECEIVED NOTED AND CARRIED OUT.
[2020-03-29 14:46] LABS: BASOPHILS % (AUTO) 0.2 % (0.0-2.0); EOSINOPHILS % (AUTO) 0.1 % (0.0-6.0); HEMATOCRIT 44 % (39-51); LYMPHOCYTES # (AUTO) 0.5 /CMM (0.8-4.8); LYMPHOCYTES % (AUTO) 5.6 % (20.0-44.0); MEAN CORPUSCULAR HGB CONC 32 g/dl (31.0-36.0); MEAN CORPUSCULAR VOLUME 86 fL (80-96); MONOCYTES # (AUTO) 0.4 /CMM (0.1-1.30); MONOCYTES % (AUTO) 4.4 % (2.0-12.0); NEUTROPHILS # (AUTO) 7.7 /CMM (1.8-8.9); NEUTROPHILS % (AUTO) 89.7 % (43.0-81.0); PLATELET COUNT (AUTO) 219 /CMM (150-450); RED BLOOD CELL COUNT(AUTO) 5.19 MIL/uL (4.5-6.0); WHITE BLOOD COUNT (AUTO) 8.6 K/uL (4.3-11.0)
[2020-03-29] MEDS ORDERED: OLANZAPINE 10 MG VIAL IM ONE ×2 (15:00→15:26)
[2020-03-29] MEDS ORDERED: diphenhydrAMINE HCL 50 MG/ML VIAL IM ONE (15:00)
[2020-03-29 15:05] LABS: CALCIUM, SERUM 9.1 mg/dL (8.5-10.1); CARBON DIOXIDE 25 mmol/L (21-32); CHLORIDE 104 mmol/L (98-107); CREATININE 1.4 mg/dL (0.6-1.3); GLUCOSE 106 mg/dL (74-106); POTASSIUM 3.9 mmol/L (3.5-5.1); SODIUM SERUM 139 mmol/L (136-145); UREA NITROGEN, BLOOD 18 mg/dL (7-18)
[2020-03-29 15:11] LABS: ALANINE AMINOTRANSFERASE 36 U/L (12-78); ALBUMIN 3.8 g/dL (3.4-5.0); ALCOHOL, BLOOD < 3 mg/dL (0-0); ALKALINE PHOSPHATASE 62 U/L (46-116); ASPARTATE AMINOTRANSFERASE 33 U/L (15-37); BILIRUBIN,DIRECT 0.2 mg/dL (0.0-0.2); BILIRUBIN,TOTAL 0.6 mg/dL (0.2-1.0); LIPASE 81 U/L (73-393); TOTAL PROTEIN, SERUM 7.9 g/dL (6.4-8.2)
[2020-03-29 15:13] LABS: ACETAMINOPHEN 0 ug/ml (10-30); SALICYLATE 0.6 mg/dL (2.8-20.0)
[2020-03-29] MEDS ORDERED: diphenhydrAMINE HCL 50 MG/ML VIAL ONE (15:26)
--- NOTE | 2020-03-29 21:00 | NUR ---
PT WAS IN BED SLEEPING. ARROUSABLE. NAD.
[2020-03-29] MEDS ORDERED: BENZTROPINE MESYLATE (2MG/2ML) 2 MG/2 ML AMPUL ONE (22:06)
--- NOTE | 2020-03-29 22:17 | NUR ---
PT AWAKE IN BED, STILL NOTED INVOLUNTARY MOVEMENT. MADE AWARE. COGENTIN 2MG ORDERED. NOTED AND CARRIED OUT.
--- NOTE | 2020-03-29 22:18 | NUR ---
PT PROVIDED WITH JUICE. STILL UNABLE TO URINATE AT THIS TIME. MD DIETRICH
[2020-03-29] MEDS ORDERED: BENZTROPINE MESYLATE (2MG/2ML) 2 MG/2 ML AMPUL IM ONE (22:30)
--- NOTE | 2020-03-29 23:52 | NUR ---
urine sent to lab
[2020-03-30 00:36] LABS: APPEARANCE,URINE Clear (CLEAR); BILIRUBIN,URINE SMALL (NEGATIVE); BLOOD, URINE Trace-intact Ery/uL (NEGATIVE); COLOR,URINE Yellow (YELLOW); KETONES,URINE 15 (NEGATIVE); LEUKOCYTE ESTERASE ,URINE Negative (NEGATIVE); NITRITE, URINE Negative (NEGATIVE); PH,URINE 5.5 (5.0-8.0); PROTEIN,URINE 30 mg/dl (NEGATIVE); UGLUCOSE Negative (NEGATIVE); UROBILINOGEN,URINE 0.2 EU/dL (0.2)
[2020-03-30 00:45] LABS: BACTERIA,URINE None seen /HPF (None Seen); MUCUS,URINE Few /LPF (None Seen); RBC,URINE 0-2 /HPF (0-2); SQUAMOUS EPITHELIAL CELL,UR Few /HPF (None Seen); WBC,URINE 0-2 /HPF (0-3)
--- NOTE | 2020-03-30 01:08 | NUR ---
PT ASLEEP/ PROVIDED WITH BLANKET.
--- NOTE | 2020-03-30 01:47 | NUR ---
ACCEPTED. DR GLEASON [phone] UNIT 1
--- NOTE | 2020-03-30 02:12 | NUR ---
Saud called for S transport. ETA [phone]
[2020-03-30 02:23] VITALS: BP 118/70
[2020-03-30] MEDS ORDERED: ACETAMINOPHEN ES 500 MG TABLET ONE (03:49)
[2020-03-30] MEDS ORDERED: ACETAMINOPHEN ES 500 MG TABLET PO ONE (04:00)
--- NOTE | 2020-03-30 04:24 | NUR ---
PT WAS TAKEN TO [facility] WHERE TEMP WAS ELEVATED. PT BROUGHT BACK TO ED. TEMP CHECKED 103. PT GIVEN 1G OF TYLENOL. RESTING COMFORTBALY.
--- NOTE | 2020-03-30 05:43 | NUR ---
PATIENT REFUSED COVID-19 SWAB. PATIENT STATES, "I DON'T HAVE CORONAVIRUS. I DON'T WANT THE SWAB."
--- NOTE | 2020-03-30 05:45 | NUR ---
Salazar aguiar in [facility] - 03/30/20 at 0555 by MELVI COVID TEST SENT TO LAB
--- NOTE | 2020-03-30 05:50 | NUR ---
Patient refused covid swab. Patient refuses to continue with care. Pt states that he is not si or hi. Patient would like to leave er. Dr Yates Notified.
== END 2020-03-30 06:43 ==
LOC: ER 18:24
DX: R45.1 Restlessness and agitation (principal); F43.10 Post-traumatic stress disorder, unspecified; F20.9 Schizophrenia, unspecified; Z88.8 Allergy status to other drugs, medicaments and biological substances; Z60.2 Problems related to living alone
CPT/HCPCS: 36415; 80048; 80076; 80305; 80307; 80329; 81001; 83690; 85025; 96372 ×3; 99285; G0480; J0515; J1200; J3490; 81000-TC

== ENCOUNTER 2020-04-05 07:08 | Inpatient (IN) | payer MEDICARE, OTHER ==
[~2020-04-05] VITALS: Ht 180.3 cm; Wt 93.0 kg
--- NOTE | 2020-04-05 07:22 | NUR ---
CAME IN FOR HEARING VOICES TELLING HIM TO HANG HIMSELF. PT IS WILLING TO GET ADMITTED TO A PSYCH UNIT. TO ER BED 11, HOOKED TO MONITOR, CHANGEDT O HOSP GOWN, WARM BLANKET PROVIDED, BELONGINGS TO PATIENT LOCKER. SITTER AT BEDSIDE, AWAITING MD FRAUSTO.
--- NOTE | 2020-04-05 07:23 | NUR ---
DR ELKINS AT BEDSIDE
--- NOTE | 2020-04-05 08:36 | NUR ---
CREATIVE DEVELOPER contacted Aron at [facility] to initiate voluntary psychiatric hospitalization.
[2020-04-05 08:48] LABS: BASOPHILS # (AUTO) 0.1 /CMM (0.0-0.2); BASOPHILS % (AUTO) 0.7 % (0.0-2.0); EOSINOPHILS % (AUTO) 0.8 % (0.0-6.0); HEMATOCRIT 38 % (39-51); HEMOGLOBIN 12.3 g/dL (13.5-17.5); LYMPHOCYTES # (AUTO) 2.1 /CMM (0.8-4.8); LYMPHOCYTES % (AUTO) 29.7 % (20.0-44.0); MEAN CORPUSCULAR HGB CONC 32 g/dl (31.0-36.0); MEAN CORPUSCULAR VOLUME 84 fL (80-96); MONOCYTES # (AUTO) 1.2 /CMM (0.1-1.30); MONOCYTES % (AUTO) 17.2 % (2.0-12.0); NEUTROPHILS # (AUTO) 3.6 /CMM (1.8-8.9); NEUTROPHILS % (AUTO) 51.6 % (43.0-81.0); PLATELET COUNT (AUTO) 329 /CMM (150-450); RED BLOOD CELL COUNT(AUTO) 4.52 MIL/uL (4.5-6.0)
[2020-04-05 09:00] LABS: APPEARANCE,URINE Clear (CLEAR); BILIRUBIN,URINE Negative (NEGATIVE); BLOOD, URINE Negative Ery/uL (NEGATIVE); COLOR,URINE Yellow (YELLOW); KETONES,URINE Negative (NEGATIVE); LEUKOCYTE ESTERASE ,URINE Trace (NEGATIVE); NITRITE, URINE Negative (NEGATIVE); PROTEIN,URINE Negative (NEGATIVE); UGLUCOSE Negative (NEGATIVE); UROBILINOGEN,URINE 0.2 EU/dL (0.2)
[2020-04-05 09:02] LABS: BACTERIA,URINE None seen /HPF (None Seen); RBC,URINE 0-2 /HPF (0-2); SQUAMOUS EPITHELIAL CELL,UR None Seen /HPF (None Seen); WBC,URINE 0-2 /HPF (0-3)
[2020-04-05 09:06] LABS: CALCIUM, SERUM 8.9 mg/dL (8.5-10.1); CARBON DIOXIDE 30 mmol/L (21-32); CHLORIDE 103 mmol/L (98-107); CREATININE 0.9 mg/dL (0.6-1.3); GLUCOSE 90 mg/dL (74-106); POTASSIUM 3.7 mmol/L (3.5-5.1); SODIUM SERUM 141 mmol/L (136-145); UREA NITROGEN, BLOOD 13 mg/dL (7-18)
[2020-04-05 09:13] LABS: ALANINE AMINOTRANSFERASE 117 U/L (12-78); ALBUMIN 3.3 g/dL (3.4-5.0); ALCOHOL, BLOOD < 3 mg/dL (0-0); ALKALINE PHOSPHATASE 73 U/L (46-116); ASPARTATE AMINOTRANSFERASE 73 U/L (15-37); BILIRUBIN,DIRECT 0.1 mg/dL (0.0-0.2); BILIRUBIN,TOTAL 0.2 mg/dL (0.2-1.0); TOTAL PROTEIN, SERUM 7.1 g/dL (6.4-8.2)
[2020-04-05 09:17] LABS: ACETAMINOPHEN 0 ug/ml (10-30); SALICYLATE 0.7 mg/dL (2.8-20.0)
[2020-04-05 09:30] LABS: EOSINOPHILS % (MANUAL) 1 % (0-4); LYMPHOCYTES % (MANUAL) 34 % (16-48); MONOCYTES % (MANUAL) 11 % (0-11.0); NEUTROPHILS % (MANUAL) 54 (42-76)
--- NOTE | 2020-04-05 09:42 | NUR ---
BREAKFAST TRAY PROVIDED, PATIENT TOLERATING PO WELL.
[2020-04-05] MEDS ORDERED: LORAZEPAM 1 MG TABLET PO ONE (10:30)
[2020-04-05] MEDS ORDERED: LORAZEPAM 1 MG TABLET ONE (10:30)
--- NOTE | 2020-04-05 11:36 | NUR ---
RYAN received a call from Huong at [facility] informing SW she has not received any clinicals for the pt. RYAN informed her, SW is awaiting MD medically cleared note and will fax clinicals once it is available.
--- NOTE | 2020-04-05 11:43 | NUR ---
PATIENT ASLEEP IN BED, EASILY AROUSABLE BY VOICE. HOOKED TO MONITOR, VSS. WILL CONTINUE TO MONITOR ACCORDINGLY, SITTER AT BEDSIDE FOR SAFETY
[2020-04-05] MEDS ORDERED: LISI10TA5 MT (13:50)
[2020-04-05] MEDS ORDERED: ALBU18HF2 INH (13:50)
[2020-04-05] MEDS ORDERED: QUET25TA PO (13:50)
[2020-04-05] MEDS ORDERED: QUET300T2 MT (13:50)
[2020-04-05] MEDS ORDERED: OMEP40CA13 MT (13:50)
[2020-04-05] MEDS ORDERED: LIDO35.4 TP (13:50)
[2020-04-05] MEDS ORDERED: BENZ1TAB7 MT (13:50)
[2020-04-05] MEDS ORDERED: LORA-259 PO (13:50)
--- NOTE | 2020-04-05 14:02 | NUR ---
REPORT GIVEN TO RICK MAES OF GPS UNIT
--- NOTE | 2020-04-05 14:21 | NUR ---
PURVIS VIRUS SWAB DONE AND SENT TO LAB
[2020-04-05] MEDS ORDERED: MAG HYDROX/AL HYDROX/SIMETH 30 ML UDC PO PRN (15:30)
[2020-04-05] MEDS ORDERED: BLOOD SUGAR DIAGNOSTIC 1 EACH STRIP IN ONE (15:30)
[2020-04-05] MEDS ORDERED: clonazePAM 0.5 MG TABLET PO PRN (15:30)
[2020-04-05] MEDS ORDERED: MAGNESIUM HYDROXIDE 30 ML UDC PO PRN (15:30)
[2020-04-05] MEDS: LORAZEPAM 1 MG TABLET PO PRN (16:53)
--- NOTE | 2020-04-05 16:53 | NUR ---
RN NOTE:PATIENT C/O ANXIETY MEDICATED WITH ATIVAN 1MG X1.WILL CONTINUE TO MONITOR.
--- NOTE | 2020-04-05 18:30 | NUR ---
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 EDUARDO AND ASK TO ASSESS PATIENT INVOLUNTARY MOVEMENT ,PATIENT SEEN BY .BODY ASSESSMENT DONE ,SKIN INTACT ,PATIENT'S RIGHT HAND BOOK GIVEN AND EXPLAINED TO PATIENT ABLE TO VERBALIZE UNDERSTANDING, NOTIFIED OF ADMISSION ALL ORDERS CARRIED OUT START PATIENT ON Q15 MINUTES SAFETY CHECK.
[2020-04-05 19:58] VITALS: BP_SYST 113; BP_SYST 94; BP_DIAS 50; BP_DIAS 66
[2020-04-05 21:45] VITALS: BP 119/76
[2020-04-05] MEDS: TEMAZEPAM 7.5 MG CAPSULE PO PRN (21:46)
--- NOTE | 2020-04-05 21:49 | NUR ---
GPS RN NOTES: INSOMNIA PT C/O UNABLE TO SLEEP. PT REQUESTED SLEEPING MEDICATION. VITALS SIGNS CHECKED, WNL. NO RESP DISTRESS. BREATHING EVEN AND UNLABORED. NO SOB. NO PAIN AT THIS TIME. ADMINISTERED RESTORIL 15MG PO PRN ORDERED. PT TOLERATED MEDICATION WELL. CONTINUE TO MONITOR.
--- NOTE | 2020-04-06 06:34 | NUR ---
GPS RN NOTES: REFUSED LABS PT REFUSED AM LAB BLOOD DRAW. PT STATED, "AYBE LATER TODAY. COME BACK LATER." Addendum: 04/06/20 at 0637 by CHRIS OROPEZA RN EXPLAIN RISKS AND BENEFITS. PT STILL REFUSED X3. WILL ENDORSE TO DAY SHIFT TO F/U. CONTINUE TO MONITOR.
[2020-04-06 08:00] VITALS: BP 125/69
[2020-04-06] MEDS: PANTOPRAZOLE 40 MG TABLET.DR PO SCH (09:33)
[2020-04-06] MEDS: LISINOPRIL (10MG) 10 MG TABLET PO SCH (09:34)
--- NOTE | 2020-04-06 12:05 | NUR ---
INITIAL DISCHARGE PLAN: Pt is homeless and will need placement. SW will help form a safe and proper discharge in collaboration with MD.
--- NOTE | 2020-04-06 12:08 | NUR ---
SUBSTANCE ABUSE INTERVENTION: Pt is unable to participate in intervention due to severe symptoms of Tardive Dyskinesia and pt being unable to speak at this time.
[2020-04-06] MEDS: BENZTROPINE MESYLATE (1 MG) 1 MG TABLET PO SCH ×3 (14:13→18:27)
[2020-04-06] MEDS: QUETIAPINE FUMARATE 25 MG TABLET PO SCH ×2 (15:52→21:45)
[2020-04-06 16:00] VITALS: BP 122/69
--- NOTE | 2020-04-06 18:00 | NUR ---
COOPERATIVE,COMPLIANT.REFUSED NABILA. LILLIAN,[facility] TOLD HIM NOT TO TAKE COGENTIN.
[2020-04-06 18:01] LABS: ALBUMIN 3.3 g/dL (3.4-5.0); BILIRUBIN,TOTAL 0.2 mg/dL (0.2-1.0); CALCIUM, SERUM 9.2 mg/dL (8.5-10.1); TOTAL PROTEIN, SERUM 7.2 g/dL (6.4-8.2)
[2020-04-06 18:08] LABS: THYROID STIMULATING HORMONE 1.151 uIU/mL (0.358-3.74)
[2020-04-06 18:15] LABS: POTASSIUM 3.8 mmol/L (3.5-5.1)
[2020-04-06] MEDS: LORAZEPAM 1 MG TABLET PO PRN (19:44)
--- NOTE | 2020-04-06 19:48 | NUR ---
GPS-RN NOTE: ANXIETY PATIENT C/O FEELING ANXIOUS. PT REQUESTED FOR ATIVAN. ADMINISTERED ATIVAN 1MG PO ORDERED. WILL CONTINUE TO MONITOR FOR SAFETY.
[2020-04-06 19:54] VITALS: BP 143/72
[2020-04-06 19:56] VITALS: BP 102/62
--- NOTE | 2020-04-07 03:20 | NUR ---
RN NOTES PATIENT SEEN BY DR. TENA VIA TELEHEALTH. MADE AWARE OF PATIENT REFUSING MEDICATION, COGENTIN. NO NEW ORDERS AT THIS TIME. WILL CONTINUE TO MONITOR PATIENT. Addendum: 04/07/20 at 1810 by PANTERA RO RN WRONG TIME, PATIENT SEEN BY DR. TENA AT 1520.
[2020-04-07 08:00] VITALS: BP 105/64
--- NOTE | 2020-04-07 08:45 | NUR ---
OPENING NOTES RECEIVED PATIENT IN BED ALERT AND ORIENTED X3. NO ACUTE DISTRESS NOTED AT THIS TIME. PATIENT IS ANXIOUS, AND EASILY AGITATED. DENIES SI AT THIS TIME. SAFETY PRECAUTIONS IMPLEMENTED. WILL CONTINUE TO MONITOR Q15MIN ROUNDS FOR SAFETY AND BEHAVIOR.
[2020-04-07] MEDS: BENZTROPINE MESYLATE (1 MG) 1 MG TABLET PO SCH ×2 (09:00→16:48)
[2020-04-07] MEDS: LISINOPRIL (10MG) 10 MG TABLET PO SCH (09:00)
--- NOTE | 2020-04-07 09:00 | NUR ---
REFUSAL OF MEDICATION PATIENT REFUSED COGENTIN 1 mg PO, EDUCATED THE BENEFITS OF MEDICATION MULTIPLE TIMES, PATIENT STILL REFUSING. CHARGE NURSE MADE AWARE, WILL CONTINUE TO MONITOR PATIENT.
[2020-04-07] MEDS: PANTOPRAZOLE 40 MG TABLET.DR PO SCH (09:05)
[2020-04-07] MEDS: QUETIAPINE FUMARATE 25 MG TABLET PO SCH (09:05)
--- NOTE | 2020-04-07 15:32 | NUR ---
INDIVIDUAL INTERVENTION: Pt is unable to participate in intervention due to severe symptoms of Tardive Dyskinesia and pt being unable to speak at this time.
[2020-04-07] MEDS: QUETIAPINE FUMARATE 100 MG TABLET PO SCH (16:47)
[2020-04-07] MEDS: ACETAMINOPHEN 325 MG TABLET PO PRN (16:51)
--- NOTE | 2020-04-07 16:51 | NUR ---
RN NOTES PATIENT COMPLAINING OF MILD SHOULDER PAIN, REQUESTING PAIN MEDICATION. ADMINISTERED PRN TYLENOL 650mg ORDERED. WILL CONTINUE TO MONITOR PATIENT.
[2020-04-07] MEDS ORDERED: QUETIAPINE FUMARATE 25 MG TABLET PO SCH (17:00)
[2020-04-07 20:30] VITALS: BP 98/61
[2020-04-07] MEDS: LORAZEPAM 1 MG TABLET PO PRN (20:48)
--- NOTE | 2020-04-07 20:55 | NUR ---
NURSES NOTES: PATIENT NOTED TO BE ANXIOUS AND A BIT AGITATED AT THIS TIME. REQUESTING FOR HIS ATIVAN MEDICATION. ADMINISTERED ATIVAN PRN ORDER. WILL NOTED EFFICACY OF MEDICATION.
[2020-04-08 08:00] VITALS: BP 135/66
[2020-04-08] MEDS: QUETIAPINE FUMARATE 100 MG TABLET PO SCH ×2 (08:13→16:13)
[2020-04-08] MEDS: BENZTROPINE MESYLATE (1 MG) 1 MG TABLET PO SCH ×2 (08:13→08:50)
[2020-04-08] MEDS: PANTOPRAZOLE 40 MG TABLET.DR PO SCH (08:13)
[2020-04-08] MEDS: LISINOPRIL (10MG) 10 MG TABLET PO SCH (08:14)
--- NOTE | 2020-04-08 14:34 | NUR ---
INDIVIDUAL INTERVENTION: SW met with pt to discuss his discharge plan. Pts muscle movements are not as severe today and was able to communicate with SW. Pt states he wishes to be discharged to a prison and states he feels better today. Pt only engaged with SW for a short period of time then walked away.
[2020-04-08 16:00] VITALS: BP 107/89
[2020-04-08 20:00] VITALS: BP 116/67
[2020-04-08 20:08] VITALS: BP 116/67
[2020-04-08] MEDS: LORAZEPAM 1 MG TABLET PO PRN (20:47)
--- NOTE | 2020-04-08 20:47 | NUR ---
GPS RN NOTE: ANXIETY PATIENT STATED THAT HE IS FEELING ANXIOUS & RESTLESS, REQUESTED TO GET ATIVAN. PRN ATIVAN 1 MG 1 TAB PO GIVEN ORDERED. WILL CONTINUE TO MONITOR FOR ANY CHANGES.
[2020-04-08] MEDS: ACETAMINOPHEN 325 MG TABLET PO PRN (21:26)
--- NOTE | 2020-04-08 21:27 | NUR ---
GPS RN NOTE: PRN TYLENOL GIVEN PATIENT C/O RIGHT SHOULDER PAIN & REQUESTED TO GET PAIN MEDICINE. PRN TYLENOL 650 MG PO GIVEN ORDERED. WILL CONTINUE TO MONITOR.
[2020-04-08] MEDS: TEMAZEPAM 7.5 MG CAPSULE PO PRN (23:14)
--- NOTE | 2020-04-08 23:14 | NUR ---
GPS RN NOTE: INSOMNIA PATIENT VERBALIZED THAT HE IS UNABLE TO SLEEP, REQUESTED TO GET SLEEPING MEDICINE. PRN RESTORIL 15 MG PO GIVEN ORDERED. WILL CONTINUE TO MONITOR FOR EFFECTIVENESS
[2020-04-09 08:00] VITALS: BP 125/71
[2020-04-09] MEDS: LORAZEPAM 1 MG TABLET PO PRN ×2 (08:33→22:11)
[2020-04-09] MEDS: PANTOPRAZOLE 40 MG TABLET.DR PO SCH (08:33)
[2020-04-09] MEDS: QUETIAPINE FUMARATE 100 MG TABLET PO SCH ×2 (08:33→16:23)
[2020-04-09] MEDS: LISINOPRIL (10MG) 10 MG TABLET PO SCH ×2 (08:33→08:36)
[2020-04-09 16:00] VITALS: BP 107/65
[2020-04-09] MEDS: TEMAZEPAM 7.5 MG CAPSULE PO PRN (21:31)
[2020-04-09] MEDS: ACETAMINOPHEN 325 MG TABLET PO PRN (21:34)
--- NOTE | 2020-04-09 22:11 | NUR ---
GPS RN NOTE, PATIENT HAS A COMPLAINT OF FEELING ANXIOUS IS REQUESTING ATIVAN TO HELP MANAGE HIS TARDIVE DYSKINESIA. PATIENT IS HYPERVERBAL, ARGUMENTATIVE, AND EMPTYING HIS TRASH ON THE FLOOR TO MAKE A POINT. PATIENT VITAL SIGNS ARE STABLE. GAVE ATIVAN 1 MG PO Q4HR PRN ORDERED. WILL REASSESS FOR ANXIETY AND I WILL CONTINUE TO MONITOR THIS PATIENT WITH THE HELP OF STAFF.
[2020-04-10 04:27] VITALS: BP 97/55
[2020-04-10] MEDS: LORAZEPAM 1 MG TABLET PO PRN ×2 (07:38→21:22)
--- NOTE | 2020-04-10 07:39 | NUR ---
RN NOTE- PT W AGITATION. ATIVAN 1MG GIVEN
[2020-04-10] MEDS: PANTOPRAZOLE 40 MG TABLET.DR PO SCH (07:44)
[2020-04-10 08:00] VITALS: BP 114/69
[2020-04-10] MEDS: QUETIAPINE FUMARATE 100 MG TABLET PO SCH ×2 (08:17→16:37)
[2020-04-10] MEDS: LISINOPRIL (10MG) 10 MG TABLET PO SCH (08:25)
--- NOTE | 2020-04-10 09:00 | NUR ---
RN NOTE- PT IS AMBULATORY WAS ANXIOUS BUT ATIVAN DECREASED SX. VISIBLE ON UNIT PACING AT TIMES. STATES 'MEDICATIONS WONT STOP MY HEAD' TARDIVE DYSKINESIA CONTINUES THOUGH NOT IT WAS ON ADMISSION PO INTAKE GOOD MED COMPLIANT DIRECTABLE DENIES SI HI AH VH
[2020-04-10] MEDS: ACETAMINOPHEN 325 MG TABLET PO PRN ×2 (15:41→21:26)
--- NOTE | 2020-04-10 15:41 | NUR ---
RN NOTE- PAIN/ PT C/O TOOTH PAIN LEFT SIDE OF MOUTH. STATES HES HAD TOOTHACHE OFF AND ON. TYLENOL 650 MG GIVEN
[2020-04-10 16:00] VITALS: BP 108/60
--- NOTE | 2020-04-10 18:33 | NUR ---
RN NOTE- PAIN/ PT W CONTINUED TOOTHACHE. DR RYDER ORDERED MOTRIN 600 MG Q8H PRN. ONE TAB GIVEN AT THIS TIME
[2020-04-10] MEDS: IBUPROFEN 600 MG TABLET PO PRN (18:35)
[2020-04-10 19:57] VITALS: BP 99/59
[2020-04-10 20:09] VITALS: BP 99/54
[2020-04-11] MEDS: TEMAZEPAM 7.5 MG CAPSULE PO PRN (01:38)
[2020-04-11] MEDS: IBUPROFEN 600 MG TABLET PO PRN ×3 (06:29→18:53)
[2020-04-11 08:00] VITALS: BP 124/66
--- NOTE | 2020-04-11 09:02 | NUR ---
SNF REFERRAL: ALMA ROSA faxed SNF referral to [facility] ([facility]) [address] [address] for review.
[2020-04-11] MEDS: QUETIAPINE FUMARATE 100 MG TABLET PO SCH ×2 (09:38→16:46)
[2020-04-11] MEDS: LISINOPRIL (10MG) 10 MG TABLET PO SCH (09:38)
[2020-04-11] MEDS: PANTOPRAZOLE 40 MG TABLET.DR PO SCH (09:38)
--- NOTE | 2020-04-11 12:17 | NUR ---
[facility] CONTACT: SW received a call from Johnny regional hr manager at [facility] ([facility]) [address] [address] stating pt has been accepted to the facility.
--- NOTE | 2020-04-11 14:46 | NUR ---
INDIVIDUAL INTERVENTION: SW attempted to meet with pt to discuss his discharge plan. Pt was asleep and not easily aroused by verbal cues.
[2020-04-11 16:00] VITALS: BP 105/64
[2020-04-11] MEDS: LORAZEPAM 1 MG TABLET PO PRN (17:55)
--- NOTE | 2020-04-11 18:32 | NUR ---
rn notes patient remains a/o x3 and shows no SI. Ambulatory with steady gait, able to mingle with other patients in the activity room. Med compliant. Patient shows pain regarding his tooth, motrin given to patient and he states that it helps with the pain.
[2020-04-11 19:55] VITALS: BP 84/43
[2020-04-11 20:15] VITALS: BP 116/71
[2020-04-12] MEDS: IBUPROFEN 600 MG TABLET PO PRN ×2 (03:25→15:06)
--- NOTE | 2020-04-12 03:25 | NUR ---
GPS-RN NOTE: PAIN PATIENT C/O RIGHT SHOULDER PAIN. PT REQUESTED FOR MOTRIN. ADMINISTERED IBUPROFEN 600MG PO ORDERED. WILL CONTINUE TO MONITOR THE EFFECTIVENESS OF MEDICATION.
[2020-04-12] MEDS: LORAZEPAM 1 MG TABLET PO PRN ×2 (04:00→15:06)
--- NOTE | 2020-04-12 04:02 | NUR ---
GPS-RN NOTE: ANXIETY PATIENT C/O FEELING ANXIOUS. REQUESTING FOR HIS ATIVAN. ADMINISTERED ATIVAN 1MG PO ORDERED. WILL CONTINUE TO MONITOR FOR SAFETY.
[2020-04-12 08:05] VITALS: BP 99/54
[2020-04-12] MEDS: LISINOPRIL (10MG) 10 MG TABLET PO SCH (08:55)
[2020-04-12] MEDS: QUETIAPINE FUMARATE 100 MG TABLET PO SCH ×2 (09:41→17:25)
[2020-04-12] MEDS: PANTOPRAZOLE 40 MG TABLET.DR PO SCH (09:42)
--- NOTE | 2020-04-12 14:30 | NUR ---
GROUP NOTE: Pt was asleep and not easily roused by verbal cues.
--- NOTE | 2020-04-12 15:16 | NUR ---
MEDICATED FOR TOOTHACHE AND ANXIETY WITH MOTRIN AND ATIVAN.
[2020-04-12 15:58] VITALS: BP 98/59
--- NOTE | 2020-04-12 18:00 | NUR ---
no change in status.
[2020-04-12] MEDS: ACETAMINOPHEN 325 MG TABLET PO PRN (20:02)
--- NOTE | 2020-04-12 20:03 | NUR ---
GPS RN NOTES: PT C/O OF TOOTH PAIN. PT REQUESTED MEDICATION. OFFERED TYLENOL 650M MG PO PRN ORDERED.PT AGREED AND TOLERATED MEDICATION WELL. CONTINUE TO MONITOR.
[2020-04-12 20:11] VITALS: BP 98/53
[2020-04-12 23:19] VITALS: BP 112/69
[2020-04-12] MEDS: TEMAZEPAM 7.5 MG CAPSULE PO PRN (23:21)
[2020-04-13 08:00] VITALS: BP 127/76
[2020-04-13] MEDS: PANTOPRAZOLE 40 MG TABLET.DR PO SCH (08:12)
[2020-04-13] MEDS: QUETIAPINE FUMARATE 100 MG TABLET PO SCH ×2 (08:12→16:21)
[2020-04-13] MEDS: LISINOPRIL (10MG) 10 MG TABLET PO SCH (08:13)
[2020-04-13] MEDS: LORAZEPAM 1 MG TABLET PO PRN ×2 (08:16→16:21)
--- NOTE | 2020-04-13 14:00 | NUR ---
GROUP NOTE: Pt was present during group therapy but was not engaged in conversation. Pt was eating a salad and did not maintain eye contact.
[2020-04-13 16:00] VITALS: BP 132/98
[2020-04-13] MEDS: IBUPROFEN 600 MG TABLET PO PRN (16:21)
--- NOTE | 2020-04-13 16:30 | NUR ---
NURSING NOTE: PT STATING "I'M FEELING VERY ANXIOUS, I NEED SOME ATIVAN TO CALM DOWN" ADMINISTERED ATIVAN 1 MG PO PER MD ORDER. PT ALSO C/O TOOTHACHE 03/02 PAIN. REQUESTING SOMETHING FOR PAIN. ADMINISTERED MOTRIN 600 MG PO PER MD ORDER. VVS. WILL CONTINUE TO MONITOR FOR SAFETY AND BEHAVIOR.
[2020-04-13 20:06] VITALS: BP 108/68
[2020-04-13] MEDS: ACETAMINOPHEN 325 MG TABLET PO PRN (21:06)
--- NOTE | 2020-04-13 21:08 | NUR ---
GPS RN NOTE: PAIN PT WAS COMPLAINING OF 10/10 PAIN COMING FROM HIS SHOULDER AND TOOTH. PT STATED "I NEED MY PAIN MED IM IN PAIN, I NEED TYLENOL". ADMINISTERED TYLENOL MEDICATION PRN @8426. WILL REASSESS AND MONITOR Q15 MIN FOR SAFETY AND BEHAVIOR.
--- NOTE | 2020-04-13 21:28 | NUR ---
GPS RN NURSING NOTE: DIET CHANGE PATIENTS HBA1C WAS 7.1, WENT AHEAD AND NOTIFIED DR. ARECHIGA. PER MD ORDERS CHANGED PTS DIET FROM REGULAR TO DIABETIC. WILL CONTINUE TO MONITOR Q15 MIN FOR SAFETY AND BEHAVIOR.
[2020-04-13] MEDS: TEMAZEPAM 7.5 MG CAPSULE PO PRN (22:14)
--- NOTE | 2020-04-13 22:18 | NUR ---
GPS RN NOTE: INSOMNIA PT COMPLAINED OF INSOMNIA AND ASKED IF HE WAS ABLE TO TAKE RESTORIL RIGHT AWAY. CHECKED HIS VITAL SIGNS, VITAL SIGNS STABLE. ADMINISTERED RESTORIL 15MG PRN @2214, WILL REASSESS @2314 AND CONTINUE TO MONITOR Q15 MIN FOR SAFETY AND BEHAVIOR.
[2020-04-14] MEDS: IBUPROFEN 600 MG TABLET PO PRN ×2 (01:30→20:31)
[2020-04-14] MEDS: LORAZEPAM 1 MG TABLET PO PRN (01:30)
--- NOTE | 2020-04-14 01:33 | NUR ---
GPS RN NOTE: ANXIETY & PAIN PT COMPLAINED OF FEELING ANXIOUS, RESTLESS, INABILITY TO SLEEP WELL HAVING PAIN. PATIENT REQUESTED TO HAVE AN ATIVAN AT MOTRIN. VITALS WNL, ADMINISTERED PRN ATIVAN & MOTRIN @ 0130. WILL REASSESS AND MONITOR Q15MIN FOR SAFETY AND BEHAVIOR.
[2020-04-14 08:00] VITALS: BP 154/75
[2020-04-14] MEDS: LISINOPRIL (10MG) 10 MG TABLET PO SCH (08:21)
[2020-04-14] MEDS: QUETIAPINE FUMARATE 100 MG TABLET PO SCH ×2 (08:21→16:22)
[2020-04-14] MEDS: PANTOPRAZOLE 40 MG TABLET.DR PO SCH (08:21)
[2020-04-14] MEDS: ACETAMINOPHEN 325 MG TABLET PO PRN (08:59)
--- NOTE | 2020-04-14 10:13 | NUR ---
SNF CONTACT: SW contacted Kathi Jones, health unit coordinator at [facility] ([facility]) [address] [address] to inform her pt will be discharged on Saturday04/15/20. She agreed with discharge plan and has assigned pt to room 19B.
--- NOTE | 2020-04-14 14:24 | NUR ---
INDIVIDUAL INTERVENTION: SW attempted to meet with pt to invite to group and to interact. Pt was asleep and not easily aroused by verbal cues.
[2020-04-14 16:00] VITALS: BP 106/65
[2020-04-14 20:48] VITALS: BP 114/74
[2020-04-14] MEDS: TEMAZEPAM 7.5 MG CAPSULE PO PRN (22:13)
--- NOTE | 2020-04-14 22:14 | NUR ---
GPS-RN NOTE: INSOMNIA PATIENT C/O INABILITY TO SLEEP. ADMINISTERED RESTORIL 15MG PO ORDERED. WILL CONTINUE TO MONITOR.
--- NOTE | 2020-04-14 22:49 | NUR ---
GPS-RN NOTE: TOOTHACHE PATIENT C/O TOOTHACHE ON A PAIN SCALE OF 10/10. ADMINISTERED IBUPROFEN AND WAS INEFFECTIVE. CALLED METAL [employer] AND NOTIFIED PATIENT'S FINDING ASSESSMENT WITH NEW ORDER OF NORCO 5/325MG PO X ONE ORDERED. WILL CONTINUE TO MONITOR FOR THE EFFECTIVENESS OF MEDICATION.
[2020-04-14] MEDS ORDERED: HYDROCODONE/APAP 5/325MG 1 EACH TABLET PO ONE (23:00)
[2020-04-14 23:10] VITALS: BP 105/60
[2020-04-15 00:15] VITALS: BP 102/58
[2020-04-15] MEDS: LORAZEPAM 1 MG TABLET PO PRN ×2 (00:18→10:29)
--- NOTE | 2020-04-15 00:24 | NUR ---
GPS-RN NOTE: ANXIETY PATIENT IS ANXIOUS AND AGITATED. PATIENT WAS THROWING TRASH IN THE HALLWAY. PT STATED "THE PAIN MEDICINE THAT YOU GAVE IT DOESN'T WORK". NORCO WAS ADMINISTERED AT 2316 FOR TOOTHACHE. REDIRECTED PATIENT'S BEHAVIOR. ADMINISTERED ATIVAN 1MG PO ORDERED. PATIENT IN BED RESTING AND CALM AT THIS TIME. WILL CONTINUE TO MONITOR FOR PATIENT'S SAFETY AND BEHAVIOR.
[2020-04-15 08:00] VITALS: BP 114/63
--- NOTE | 2020-04-15 08:01 | NUR ---
Social Work Discharge Note: Patient will be discharged to [facility] [address] [place] [address]; ([phone]). Patient will be discharging 12:30pm via [facility]ULN[facility] to [facility] (SNF) [address] [facility] [address] . Patient does not have any family members to notify at the moment. Patient is aware and agreeable with discharge and is willing to go [facility]. Patient will follow up with (Psychiatrist) Dr. Armstrong [address] [address] ([phone]) and (Composing Room Supervisor) Dr. Prescott [address] [facility] [address] [place], [place] [address] ). Patient was provided with a brief substance abuse intervention and referred to the following substance abuse programs: [facility] Substance Abuse Self-helpline ([phone]); [facility] [address] [place] [address] ([phone]); [facility] [address] [facility] [address] ([phone]); [facility] Rehabilitation Program ([phone]); [facility] ([phone]); [facility] ([phone]); [facility] ([phone]). Patient signed the homeless waiver upon discharge and a copy was placed in the chart. Homeless resources were provided and include 211 information line for shelters and homeless resources. A copy of all resources given to patient was also placed in the chart. Addendum: 04/15/20 at 1519 by ALMA ROSA PRO Cancel discharge
[2020-04-15 08:03] VITALS: BP 114/63
[2020-04-15] MEDS: PANTOPRAZOLE 40 MG TABLET.DR PO SCH (08:03)
[2020-04-15] MEDS: LISINOPRIL (10MG) 10 MG TABLET PO SCH (08:03)
[2020-04-15] MEDS: IBUPROFEN 600 MG TABLET PO PRN (08:03)
[2020-04-15] MEDS: QUETIAPINE FUMARATE 100 MG TABLET PO SCH (08:03)
[2020-04-15] MEDS: ACETAMINOPHEN 325 MG TABLET PO PRN (10:29)
--- NOTE | 2020-04-15 10:30 | NUR ---
GPS-RN NOTE: ANXIETY PATIENT IS ANXIOUS REQUESTING MEDICATION FOR ANXIETY AND PAIN ADMINISTERED ATIVAN 1MG PO ORDERED. TYLENOL 650 MG PO PRN WILL CONTINUE TO MONITOR FOR PATIENT'S SAFETY AND BEHAVIOR.
--- NOTE | 2020-04-15 15:23 | NUR ---
Social Work Note: Patient refused to go to [facility]. Patient wants to be discharged to the streets. This poem writer consulted with Crystal Ortiz LCSW and she agreed with this discharge. This poem writer also informed Dr. Noel.
--- NOTE | 2020-04-15 15:24 | NUR ---
Social Work Discharge Note: Patient is choosing to be discharged to the streets. Patient will be given a TAP card. Patient is aware and agreeable with discharge plans. Patient denies suicidal or homicidal ideation. Patient presents as alert and oriented x4 with irritable mood and congruent affect. He is at his baseline. Patient is referred to [facility] [address] [place] [address] ([phone]) for outpatient psychiatric services and talent specialist consultation. ALMA ROSA provided patient with the [phone] [facility] Longterm Program list. ALMA ROSA provided patient with a copy of the [facility] homeless directory which provides information on locations for hot meals, sack lunches, food pantries, and showers. ALMA ROSA provided an additional list of mental health clinics: [facility] [address] [place] [address] ([phone]); [facility] [address] [place] [address] ([phone]); a list of medical clinics ; [facility] [address] [facility] [address], [place]. [place], ; [facility] [address] [facility] [address], [place]. ALMA ROSA Provided [facility] [address] [place] [address]: ([phone]). Patient was provided with a brief substance abuse intervention and referred to the following substance abuse programs: [facility] Substance Abuse Self-helpline ([phone]); [facility] [address] [place] [address] ([phone]); [facility] [address] [facility] [address] ([phone]); [facility] ([phone]); [facility] ([phone]); [facility] ([phone]); [facility] ([phone]). Patient signed the homeless waiver upon discharge and a copy was placed in the chart. Homeless resources were provided and include 211 information line for shelters and homeless resources. A copy of all resources given to patient was also placed in the chart.
--- NOTE | 2020-04-15 15:53 | NUR ---
GPS MAINTENANCE SHOP CLERK NOTE: PATIENT DISCHARGED TODAY AT 1550 TO [facility] ADDRESS [address] [place] [address] TEL [phone] TAP CARD WAS PROVIDED PATIENT LEFT THE UNIT AMBULATORY ACCOMPANIED BY 1 STAFF TO THE MAIN LOBBY PT HAS NO ONE TO NOTIFIED. PATIENT IS IN STABLE CONDITION. VSS. NO ACUTE DISTRESS NOTED. NO COMPLAINTS. COMPLIANT WITH MEDICATION MANAGEMENT. COOPERATIVE WITH PLAN OF CARE. PSYCHIATRIC TREATMENT PLANS MET. MEDICAL TREATMENT PLANS DEFERRED FOR CONTINUAL MONITORING. DENIES SI/HI/VAH AT THE TIME OF DISCHARGE.PATIENT REFUSED SKIN ASSESSMENT AND PICTURES TO BE TAKEN. EDUCATED PATIENT ABOUT AFTERCARE WITH COPY PROVIDED. RETURNED PERSONAL BELONGINGS TO PATIENT. MEDICATIONS RECONCILED WITH ALONG WITH PSYCHIATRIC DISCHARGE ORDERS. PATIENT REFUSED TO SIGN DISCHARGE PAPERWORK DR TENA NOTIFIED WITH MARII SALGADO DC PT TO [facility] FOR FOLLOW UP WITH PSYCHIATRIST AND FRUIT CHECKER WITHIN 1 WEEK
== END 2020-04-15 15:50 | disposition home or self-care (01) | DRG 885 ==
LOC: ER 07:10 → GPS 14:30
PROVIDERS: ADMIT Psychiatry & Neurology Psychiatry; ATTEND Student in an Organized Health Care Education/Training Program
DX: F20.0 Paranoid schizophrenia (principal); E44.1 Mild protein-calorie malnutrition; F32.9 Major depressive disorder, single episode, unspecified; F43.10 Post-traumatic stress disorder, unspecified; I10 Essential (primary) hypertension; F41.9 Anxiety disorder, unspecified; G24.01 Drug induced subacute dyskinesia; K08.89 Other specified disorders of teeth and supporting structures; F14.10 Cocaine abuse, uncomplicated; F11.10 Opioid abuse, uncomplicated; F17.210 Nicotine dependence, cigarettes, uncomplicated; Z59.0 Homelessness; R74.0 Nonspecific elevation of levels of transaminase and lactic acid dehydrogenase [LDH]; D64.9 Anemia, unspecified; E88.09 Other disorders of plasma-protein metabolism, not elsewhere classified; Z68.28 Body mass index [BMI] 28.0-28.9, adult; E87.6 Hypokalemia; E86.0 Dehydration; E78.5 Hyperlipidemia, unspecified; E11.9 Type 2 diabetes mellitus without complications; Z86.73 Personal history of transient ischemic attack (TIA), and cerebral infarction without residual deficits; K44.9 Diaphragmatic hernia without obstruction or gangrene; M19.90 Unspecified osteoarthritis, unspecified site; G47.00 Insomnia, unspecified
CPT/HCPCS: 36415; 80048-TC; 80053-TC; 80061-TC; 80076-TC; 80305; 81000-TC; 82962-TC; 84443-TC; 85025-TC; 87081-TC; 92611-TC; G0480

== ENCOUNTER 2020-07-18 01:17 | Emergency (ER) | payer MEDICARE, OTHER ==
[~2020-07-18] VITALS: Ht 180.3 cm; Wt 113.4 kg
[~2020-07-18 01:17] MED LIST: LISI10TA5 MT; LORA-259 PO; OMEP40CA13 MT; QUET300T2 MT
--- NOTE | 2020-07-18 01:46 | NUR ---
PATIENT CAME TO ER BED 13 C/O SUICIDAL IDEATIONPLANS TO HANG SELF. 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 PATIENT'S BELONGINGS AND CLOTHES ARE REMOVED AND PLACED INTO A LOCKER. PATIENT IS IN A CLEAN GOWN. PATIENT IS AAOX4. NO SOB .BREATHING EVENLY AND UNLABORED ON ROOM AIR. SITTER AT BEDSIDE.
--- NOTE | 2020-07-18 01:48 | NUR ---
called security for wanding. sitter within line of sight.
--- NOTE | 2020-07-18 02:20 | NUR ---
lab at bedside for blood draw
--- NOTE | 2020-07-18 02:20 | NUR ---
brandanid collected sent to lab
[2020-07-18 02:27] LABS: BASOPHILS # (AUTO) 0.1 /CMM (0.0-0.2); BASOPHILS % (AUTO) 0.8 % (0.0-2.0); EOSINOPHILS % (AUTO) 1.2 % (0.0-6.0); HEMATOCRIT 41 % (39-51); HEMOGLOBIN 13.3 g/dL (13.5-17.5); LYMPHOCYTES # (AUTO) 2.2 /CMM (0.8-4.8); LYMPHOCYTES % (AUTO) 26.7 % (20.0-44.0); MEAN CORPUSCULAR HGB CONC 32 g/dl (31.0-36.0); MEAN CORPUSCULAR VOLUME 85 fL (80-96); MONOCYTES # (AUTO) 0.6 /CMM (0.1-1.30); MONOCYTES % (AUTO) 7.1 % (2.0-12.0); NEUTROPHILS # (AUTO) 5.3 /CMM (1.8-8.9); NEUTROPHILS % (AUTO) 64.2 % (43.0-81.0); PLATELET COUNT (AUTO) 301 /CMM (150-450); RED BLOOD CELL COUNT(AUTO) 4.82 MIL/uL (4.5-6.0); WHITE BLOOD COUNT (AUTO) 8.2 K/uL (4.3-11.0)
[2020-07-18] MEDS ORDERED: LORAZEPAM INJ 2 MG/ML VIAL IM ONE (02:30)
[2020-07-18 02:38] LABS: CALCIUM, SERUM 8.7 mg/dL (8.5-10.1); CARBON DIOXIDE 27 mmol/L (21-32); CHLORIDE 106 mmol/L (98-107); CREATININE 1.3 mg/dL (0.6-1.3); GLUCOSE 85 mg/dL (74-106); SODIUM SERUM 140 mmol/L (136-145); UREA NITROGEN, BLOOD 15 mg/dL (7-18)
[2020-07-18 02:43] LABS: ALANINE AMINOTRANSFERASE 42 U/L (12-78); ALBUMIN 3.5 g/dL (3.4-5.0); ALCOHOL, BLOOD < 3 mg/dL (0-0); ALKALINE PHOSPHATASE 58 U/L (46-116); ASPARTATE AMINOTRANSFERASE 29 U/L (15-37); BILIRUBIN,DIRECT 0.1 mg/dL (0.0-0.2); BILIRUBIN,TOTAL 0.5 mg/dL (0.2-1.0); TOTAL PROTEIN, SERUM 7.1 g/dL (6.4-8.2)
[2020-07-18 02:45] LABS: ACETAMINOPHEN < 10 ug/ml (10-30)
[2020-07-18] MEDS ORDERED: LORAZEPAM INJ 2 MG/ML VIAL ONE (02:50)
--- NOTE | 2020-07-18 03:00 | NUR ---
negative covid per lab.
--- NOTE | 2020-07-18 03:13 | NUR ---
clinicals sent to [facility] intake. received by
--- NOTE | 2020-07-18 04:06 | NUR ---
spoke to elicia from [facility], no beds at this time.
--- NOTE | 2020-07-18 05:50 | NUR ---
PATIENT IS SLEEPING. EASILY AROUSABLE THROUGH VERBAL STIMULI. PATIENT IS CONNECTED TO THE MONITOR. SIDE RAILS ARE UP FOR PATIENT'S SAFETY. SITTER IS AT BEDSIDE. PATIENT IS BREATHING EVENLY AND UNLABORED ON ROOM AIR.
--- NOTE | 2020-07-18 07:18 | NUR ---
REPORT GIVEN TO TEZ MAES FOR JOHNNIE.
--- NOTE | 2020-07-18 09:14 | NUR ---
PER VERONICA, ACCEPTED AT [facility] BY DR. GLEASON & DR. BROCK TO UNIT #1, NUMBER FOR REPORT [id number] EXT [phone]
--- NOTE | 2020-07-18 09:24 | NUR ---
CALLED TRANSPORT ETA 45MINS IS PER YUNG.
[2020-07-18 10:48] VITALS: BP 129/79
--- NOTE | 2020-07-18 10:53 | NUR ---
REPORT GIVEN TO MIGUEL AMES FOR JOHNNIE. PATIENT TRANSFERRED TO [facility], IN STABLE CONDITION. VITALS STABLE, BELONGINGS GIVEN TO THE PATIENT.
== END 2020-07-18 10:56 ==
LOC: ER 01:19
DX: R45.851 Suicidal ideations (principal); Z82.49 Family history of ischemic heart disease and other diseases of the circulatory system; G24.01 Drug induced subacute dyskinesia; F20.9 Schizophrenia, unspecified; F43.10 Post-traumatic stress disorder, unspecified; Z88.8 Allergy status to other drugs, medicaments and biological substances; Z59.0 Homelessness; Z20.828 Contact with and (suspected) exposure to other viral communicable diseases
CPT/HCPCS: 36415; 80048; 80076; 80299; 80307; 80320; 85025; 87426; 96372; 99285; J2060; C9803; G0480

== ENCOUNTER 2020-09-09 20:28 | Inpatient (IN) | payer MEDICARE, OTHER ==
[~2020-09-09] VITALS: Ht 180.3 cm; Wt 93.0 kg
--- NOTE | 2020-09-09 21:38 | NUR ---
GPS ADMISSION NOTE, RECEIVED PATIENT FROM [facility] [place]. PATIENT ARRIVED ON THIS UNIT AT 2138 VIA STRETCHER WITH 2 EMT ESCORTS. PATIENT ADMITTED ON A 5150 HOLD FOR DTS. PER HOLD PATIENT REPORTED THAT HE HAD A ARGUMENT WITH GIRLFRIEND AND THEN OVERDOSED WITH 40 PILLS OF ATIVAN. PATIENT REPORTS THAT HE WANT'S TO BE AND WOULD LIKE AN ASSISTED SUICIDE DUE TO HIS TARDIVE DYSKINESIA. 5150 WAS REVIEWED AND THE DOCUMENTATION IN THE 5150 HOLD APPEARS TO REFLECT THE PRESENTATION OF THE PATIENT. UPON FACE TO FACE ASSESSMENT PATIENT IS NOTED TO BEING, DISHEVELED, DEMANDING, UNCOOPERATIVE, AND NEEDS REDIRECTION. PATIENT IS CURRENTLY LYING IN BED AWAKE, HAS NO S/S OR COMPLAINTS OF PAIN. PATIENT IS DISPLAYING NO S/S OF APPARENT DISTRESS. PATIENT BREATHING IS UNLABORED WITH EQUAL RISE AND FALL OF THE CHEST. PATIENT IS ALERT AND ORIENTATED X 3 ON ROOM AIR. PATIENT ASSISTED WITH TURING AND REPOSITIONING Q2HR AND PRN FOR COMFORT AND CIRCULATION. PATIENT HAS NO NEEDS AT THIS TIME. PATIENT DENIES SUICIDE IDEATIONS AND HOMICIDAL IDEATIONS AT THIS TIME. PATIENT REFUSED TO SIGN ALL NECESSARY PAPER WORK. PATIENT ADVISED OF HIS HOLD AND PATIENT RIGHTS BOOKLET GIVEN. PATIENT IS UNDER THE PSYCHIATRIC CARE OF DR. TENA AND THE MEDICAL CARE OF DR STEVENS. PATIENT BELONGINGS WERE INVENTORIED AND CHECKED FOR CONTRABAND. ALL CONTRABAND REMOVED AND STORED IN PATIENT HALLWAY LOCKER. PATIENT ADVANCED DIRECTIVES PREFERENCE, IMMUNIZATIONS QUESTIONER, NECESSARY PAPERWORK COMPLETED. PATIENT REFUSED SKIN ASSESSMENT. PATIENT ORIENTATED TO ROOM, FLOOR, AND STAFF WITH ALL QUESTIONS ANSWERED. PATIENT REFUSED TO HAVE INFLUENZA SHOT AND ALSO REFUSED PNEUMONIA SHOT. OFFERED THREE TIMES AND STILL PATIENT REFUSED STATING, " NO I LIKE TO DO THOSE SHOTS ELSE WHERE ON MY OWN TIME ". EDUCATED THIS PATIENT ON THE RISKS AND BENEFITS OF HAVING A FLU AND PNEUMONIA SHOT. PATIENT EDUCATED ON THE USE OF THE CALL MCCARTHY. PATIENT BED SIDE RAILS ARE UP X 2 FOR SAFETY. PATIENT BED IS LOCKED, LOW AND I WILL CONTINUE TO MONITOR THIS PATIENT Q 15 MIN WITH THE HELP OF STAFF TO MAINTAIN SAFETY.
[2020-09-09 21:45] VITALS: BP 103/68
[2020-09-09] MEDS ORDERED: IBUP-1957 PO (22:18)
[2020-09-09] MEDS ORDERED: MAG HYDROX/AL HYDROX/SIMETH 30 ML UDC PO PRN (22:30)
[2020-09-09] MEDS ORDERED: MAGNESIUM HYDROXIDE 30 ML UDC PO PRN (22:30)
--- NOTE | 2020-09-09 22:30 | NUR ---
GPS RN NOTE, PATIENT NEEDS A MEDICATION RECONCILIATION. PAGED [facility] WAITING FOR A RETURN CALL FROM DR HILDA HAUSER. WILL CONTINUE TO MONITOR THIS PATIENT.
[2020-09-10] MEDS: TEMAZEPAM 7.5 MG CAPSULE PO PRN (02:42)
--- NOTE | 2020-09-10 02:42 | NUR ---
GPS RN NOTE, PATIENT HAS A COMPLAINT OF NOT BEING ABLE TO SLEEP AND IS REQUESTING RESTORIL AT THIS TIME. PATIENT VITAL SIGNS ARE STABLE. GAVE RESTORIL 7.5MG PO HS PRN ORDERED. WILL REASSESS FOR INSOMNIA AND I WILL CONTINUE TO MONITOR THIS PATIENT WITH THE THE HELP OF STAFF.
[2020-09-10] MEDS ORDERED: BLOOD SUGAR DIAGNOSTIC 1 EACH STRIP IN ONE (07:30)
--- NOTE | 2020-09-10 07:30 | NUR ---
GPS RN NOTE, RECEIVED PATIENT AWAKE AND IN BED, NO S/S OR COMPLAINTS OF PAIN AT THIS TIME. PATIENT IS DISPLAYING NO S/S OF APPARENT DISTRESS AT THIS TIME. PATIENT BREATHING IS UNLABORED WITH EQUAL RISE AND FALL OF THE CHEST. PATIENT IS ALERT AND ORIENTED X 3 ON ROOM AIR WITH A SPO2 95%. PATIENT IS TAKING MEDICATIONS, HYPERVERBAL, ANXIOUS AT TIMES, EASILY IRRITABLE, AND COOPERATIVE. PATIENT DENIES SUICIDAL AND HOMICIDAL IDEATIONS AT THIS TIME. PATIENT ASSISTED WITH TURNING AND REPOSITIONING Q2HR AND PRN FOR COMFORT AND CIRCULATION. PATIENT HAS NO NEEDS AT THIS TIME. PATIENT EDUCATED ON THE USE OF THE CALL MCCARTHY. PATIENT BED SIDE RAILS UP X 2 FOR SAFETY. PATIENT BED IS LOCKED, LOW, WITH BED ALARM ON. WILL CONTINUE TO MONITOR THIS PATIENT Q15 MINUTES WITH THE HELP OF STAFF TO MAINTAIN SAFETY.
[2020-09-10 08:00] VITALS: BP 140/88
[2020-09-10 08:10] LABS: CALCIUM, SERUM 8.3 mg/dL (8.5-10.1); CREATININE 1.1 mg/dL (0.6-1.3)
[2020-09-10 08:32] LABS: BASOPHILS % (AUTO) 0.5 % (0.0-2.0); EOSINOPHILS % (AUTO) 1.9 % (0.0-6.0); HEMATOCRIT 42 % (39-51); HEMOGLOBIN 13.5 g/dL (13.5-17.5); LYMPHOCYTES # (AUTO) 2.2 /CMM (0.8-4.8); LYMPHOCYTES % (AUTO) 33.4 % (20.0-44.0); MEAN CORPUSCULAR HGB CONC 32 g/dl (31.0-36.0); MEAN CORPUSCULAR VOLUME 86 fL (80-96); MONOCYTES # (AUTO) 0.4 /CMM (0.1-1.30); MONOCYTES % (AUTO) 5.9 % (2.0-12.0); NEUTROPHILS # (AUTO) 3.9 /CMM (1.8-8.9); NEUTROPHILS % (AUTO) 58.3 % (43.0-81.0); PLATELET COUNT (AUTO) 221 /CMM (150-450); RED BLOOD CELL COUNT(AUTO) 4.86 MIL/uL (4.5-6.0); WHITE BLOOD COUNT (AUTO) 6.7 K/uL (4.3-11.0)
[2020-09-10] MEDS: LISINOPRIL (10MG) 10 MG TABLET PO SCH (09:02)
[2020-09-10 15:39] LABS: BILIRUBIN,URINE NEGATIVE (NEGATIVE); COLOR,URINE YELLOW (YELLOW); LEUKOCYTE ESTERASE ,URINE NEGATIVE (NEGATIVE); NITRITE, URINE NEGATIVE (NEGATIVE); PROTEIN,URINE NEGATIVE (NEGATIVE); UGLUCOSE NEGATIVE (NEGATIVE); UROBILINOGEN,URINE 0.2 EU/dL (0.2)
[2020-09-10 16:00] VITALS: BP 106/72
[2020-09-10 16:13] LABS: BACTERIA,URINE None seen /HPF (None Seen); RBC,URINE 0-2 /HPF (0-2); SQUAMOUS EPITHELIAL CELL,UR 0-2 /HPF (None Seen); WBC,URINE 0-2 /HPF (0-3)
[2020-09-10 17:50] VITALS: BP 119/62
[2020-09-10] MEDS: clonazePAM 0.5 MG TABLET PO PRN (17:55)
--- NOTE | 2020-09-10 17:56 | NUR ---
GPS RN NOTES: ANXIOUS PT C/O OF FEELING ANXIOUS. VITALS CHECKED WNL. NO SOB. NO RESP DISTRESS. BREATHING EVEN AND UNLABORED. OFFERED KLONOPIN PRN ORDERED. PT AGREED AND TOLERATED MEDICATION WELL. CONTINUE TO MONITOR.
[2020-09-10 19:46] VITALS: BP 122/72
[2020-09-10] MEDS: BENZTROPINE MESYLATE (1 MG) 1 MG TABLET PO SCH (20:10)
[2020-09-10] MEDS: QUETIAPINE FUMARATE 100 MG TABLET PO SCH (20:11)
[2020-09-11 08:00] VITALS: BP 100/50
[2020-09-11] MEDS: ENSURE ENLIVE CHOC 237 ML CAN PO SCH ×2 (08:09→16:15)
[2020-09-11] MEDS: QUETIAPINE FUMARATE 100 MG TABLET PO SCH ×2 (08:29→20:49)
[2020-09-11] MEDS: BENZTROPINE MESYLATE (1 MG) 1 MG TABLET PO SCH ×2 (08:29→20:47)
[2020-09-11] MEDS: LISINOPRIL (10MG) 10 MG TABLET PO SCH (08:30)
[2020-09-11 16:00] VITALS: BP 117/66
--- NOTE | 2020-09-11 16:39 | NUR ---
RN-CO: DR ORTEGA (COVERING FOR DR TENA) MADE AWARE THAT PT'S HOLD IS EXPIRING 09/12/20 @ 0900AM.
[2020-09-11 19:30] VITALS: BP 111/72
[2020-09-11] MEDS: TEMAZEPAM 7.5 MG CAPSULE PO PRN (20:47)
[2020-09-11] MEDS: ACETAMINOPHEN 325 MG TABLET PO PRN (20:48)
--- NOTE | 2020-09-11 20:53 | NUR ---
Pt c/o generalized body pain 11/30. Tylenol 650 mg po prn given as ordered. Pt c/o insomnia. Least restrictive measures ineffective. Restoril 7.5 mg po prn given as ordered. Will continue to monitor.
--- NOTE | 2020-09-11 21:57 | NUR ---
Post 1 hr Tylenol effective. KY 0/10. Post 1 hour Restoril effective. Pt asleep in bed easy to arouse. Kept clean, dry and comfortable. Frequent visual check done for safety. Will continue to monitor.
[2020-09-12 08:00] VITALS: BP 103/62
[2020-09-12] MEDS: LISINOPRIL (10MG) 10 MG TABLET PO SCH (08:38)
[2020-09-12] MEDS: BENZTROPINE MESYLATE (1 MG) 1 MG TABLET PO SCH ×3 (08:38→21:00)
[2020-09-12] MEDS: ENSURE ENLIVE CHOC 237 ML CAN PO SCH ×2 (08:38→17:29)
[2020-09-12] MEDS: QUETIAPINE FUMARATE 100 MG TABLET PO SCH ×2 (08:38→21:18)
--- NOTE | 2020-09-12 09:00 | NUR ---
RN NOTE- PT SLEEPING EASILY AWAKENED, TARDIVE DYSKINESIA PRESENT, MED COMPLIANT EXCEPT COGENTIN, PO INTAKE GOOD IRRITABLE AT TIMES DIRECTABLE DENIES ALL
--- NOTE | 2020-09-12 09:58 | NUR ---
Family Contact: Pt refused to provide contact information for his girlfriend or any other family members. SW does not have anyone to contact at this time.
--- NOTE | 2020-09-12 09:58 | NUR ---
Initial Discharge Plan: Pt is currently homeless and will need placement. SW will work with the pt and the pts MD regarding appropriate discharge planning. SW will form a safe and proper discharge.
--- NOTE | 2020-09-12 09:59 | NUR ---
Substance Abuse Intervention: ALMA ROSA conducted a substance abuse intervention with the pt due to his positive toxicology for cocaine but the pt refused to participate.
[2020-09-12 16:00] VITALS: BP 117/66
--- NOTE | 2020-09-12 19:30 | NUR ---
GPS RN NOTE, RECEIVED PATIENT AWAKE AND IN BED, HAS C/O NECK PAIN AT 4 OUT OF 10 ON THE PAIN SCALE. PATIENT IS TAKING ORAL PAIN MEDICATION FOR THIS PAIN. PATIENT IS DISPLAYING NO S/S OF APPARENT DISTRESS AT THIS TIME. PATIENT BREATHING IS UNLABORED WITH EQUAL RISE AND FALL OF THE CHEST. PATIENT IS ALERT AND ORIENTED X 3 ON ROOM AIR WITH A SPO2 98%. PATIENT IS TAKING MEDICATIONS, HYPERVERBAL, ANXIOUS AT TIMES, EASILY IRRITABLE, AND COOPERATIVE. PATIENT DENIES SUICIDAL AND HOMICIDAL IDEATIONS AT THIS TIME. PATIENT ASSISTED WITH TURNING AND REPOSITIONING Q2HR AND PRN FOR COMFORT AND CIRCULATION. PATIENT HAS NO NEEDS AT THIS TIME. PATIENT EDUCATED ON THE USE OF THE CALL MCCARTHY. PATIENT BED SIDE RAILS UP X 2 FOR SAFETY. PATIENT BED IS LOCKED, LOW, WITH BED ALARM ON. WILL CONTINUE TO MONITOR THIS PATIENT Q15 MINUTES WITH THE HELP OF STAFF TO MAINTAIN SAFETY.
[2020-09-12 20:00] VITALS: BP 110/57
[2020-09-12] MEDS: ACETAMINOPHEN 325 MG TABLET PO PRN (20:03)
--- NOTE | 2020-09-12 20:03 | NUR ---
GPS RN NOTE, PATIENT HAS A COMPLAINT OF NECK PAIN AT 4 OUT 10 ON THE PAIN SCALE AND IS REQUESTING TYLENOL AT THIS TIME. PATIENT VITAL ARE STABLE. GAVE TYLENOL 650MG PO Q6HR PRN ORDERED. WILL REASSESS FOR PAIN AND I WILL CONTINUE TO MONITOR THIS PATIENT.
--- NOTE | 2020-09-12 21:18 | NUR ---
GPS RN NOTE, PATIENT REFUSED COGENTIN 1MG PO Q12HR SCHEDULED. OFFERED THREE TIMES AND STILL PATIENT REFUSED STATING, " NO I DON'T TAKE COGENTIN ". EDUCATED PATIENT ON THE RISKS AND BENEFITS OF TAKING AND REFUSING COGENTIN. WILL CONTINUE TO MONITOR THIS PATIENT.
[2020-09-12] MEDS ORDERED: HYDROCODONE/APAP 5/325MG TABLET PO ONE (22:30)
--- NOTE | 2020-09-12 22:30 | NUR ---
GPS RN NOTE, PATIENT HAS A COMPLAINT OF NECK PAIN AT 6 OUT 10 ON THE PAIN SCALE AND IS REQUESTING SOMETHING STRONGER THAN TYLENOL AT THIS TIME. PATIENT VITAL ARE STABLE. PAGED [facility] AND INFORMED DR HILDA CASPER OF MY FINDINGS. DR HILDA CASPER ORDERED NORCO 5-325 PO ONCE AND TO HAVE THE MORNING ROUNDING MD TO ADDRESS THIS PATIENT'S PAIN. ALL ORDERS NOTED AND CARRIED OUT. WILL ENDORSE TO A.M. SHIFT NURSE TO FOLLOW UP WITH MORNING ROUNDING MD. WILL CONTINUE TO MONITOR THIS PATIENT.
[2020-09-13] MEDS: ENSURE ENLIVE CHOC 237 ML CAN PO SCH ×2 (07:33→16:04)
[2020-09-13] MEDS: QUETIAPINE FUMARATE 100 MG TABLET PO SCH ×2 (08:54→21:15)
[2020-09-13] MEDS: BENZTROPINE MESYLATE (1 MG) 1 MG TABLET PO SCH ×2 (08:54→21:00)
[2020-09-13] MEDS: LISINOPRIL (10MG) 10 MG TABLET PO SCH (08:55)
--- NOTE | 2020-09-13 09:00 | NUR ---
RN NOTE- PT ANXIOUS IN HALLS PACING, TARDIVE DYSKINESIA PRESENT, MED COMPLIANT EXCEPT COGENTIN, PO INTAKE GOOD IRRITABLE AT TIMES DIRECTABLE DENIES ALL
[2020-09-13] MEDS: clonazePAM 0.5 MG TABLET PO PRN ×2 (09:21→19:32)
--- NOTE | 2020-09-13 09:23 | NUR ---
RN NOTE- PT W ANXIETY. REQUESTED RX. KLONOPIN 0.5 MG GIVEN
[2020-09-13 16:04] VITALS: BP 100/58
--- NOTE | 2020-09-13 19:32 | NUR ---
GPS RN NOTE: ANXIETY PATIENT VERBALIZED THAT HE IS FEELING ANXIOUS & RESTLESS & ASKED TO GET KLONOPIN. PRN KLONOPIN 0.5 MG PO GIVEN. WILL CONTINUE TO MONITOR FOR ANY CHANGES.
[2020-09-13 20:13] VITALS: BP 114/66
--- NOTE | 2020-09-13 21:00 | NUR ---
GPS RN NOTE PATIENT REFUSED SKIN ASSESSMENT, STATED, I AM GOOD, THERE IS NO NEED TO CHECK MY SKIN." DESPITE OF RISKS & BENEFITS EXPLANATIONS, PATIENT CONTINUED TO REFUSE SKIN ASSESSMENT X 3. WILL CONTINUE TO MONITOR.
--- NOTE | 2020-09-13 21:17 | NUR ---
GPS RN NOTE: REFUSED COGENTIN PATIENT REFUSED COGENTIN 1MG PO Q12HR SCHEDULED, STATING, " I DON'T TAKE COGENTIN, IT DOES NOT HELP ME." EDUCATED PATIENT ON THE RISKS AND BENEFITS OF TAKING AND REFUSING COGENTIN, BUT PATIENT CONTINUED TO REFUSE MEDICINE X 3. WILL CONTINUE TO MONITOR THE PATIENT.
[2020-09-13] MEDS: ACETAMINOPHEN 325 MG TABLET PO PRN (21:43)
--- NOTE | 2020-09-13 21:43 | NUR ---
GPS RN NOTE: NECK PAIN PATIENT C/O NECK PAIN 11/30 & WANTED TO TAKE PAIN MEDICINE, PRN TYLENOL 650 MG PO GIVEN. WILL CONTINUE TO MONITOR FOR ANY CHANGES.
--- NOTE | 2020-09-13 23:36 | NUR ---
GPS RN NOTE PATIENT REQUESTED TO GET SLEEPING MEDICINE BUT WHEN OFFERED, PATIENT REFUSED TO TAKE IT & WANTED TO GO TO SLEEP WITHOUT TAKING RESTORIL. RETURNED RESTORIL BACK TO [facility]. WILL CONTINUE TO MONITOR THE PATIENT FOR ANY CHANGES.
--- NOTE | 2020-09-14 03:59 | NUR ---
GPS RN NOTE, [facility] PUNCH OPERATOR ON FLOOR ORDERED TO GIVE NORCO 5-325 PO Q6HR PRN IF PATIENT IS HAVING MODERATE PAIN AT 4-7 ON THE PAIN SCALE Q6HR PRN. ALL ORDERS NOTED AND CARRIED OUT. WILL CONTINUE TO MONITOR THIS PATIENT.
[2020-09-14] MEDS: ENSURE ENLIVE CHOC 237 ML CAN PO SCH ×2 (07:32→16:05)
[2020-09-14 08:00] VITALS: BP 115/68
[2020-09-14] MEDS: LISINOPRIL (10MG) 10 MG TABLET PO SCH (08:11)
[2020-09-14] MEDS: QUETIAPINE FUMARATE 100 MG TABLET PO SCH ×2 (08:11→21:11)
[2020-09-14] MEDS: BENZTROPINE MESYLATE (1 MG) 1 MG TABLET PO SCH ×2 (08:11→21:00)
--- NOTE | 2020-09-14 09:08 | NUR ---
RN-CO: PT REFUSED HIS COGENTIN , HE SAID " I DON'T NEED THAT."
[2020-09-14] MEDS: clonazePAM 0.5 MG TABLET PO PRN (17:31)
--- NOTE | 2020-09-14 17:38 | NUR ---
RN-CO: DR ORTEGA IS AWARE OF HIS REFUSAL IN COGENTIN. MD ORDERED NEURO CONSULT FOR DR HIMANSHU LI. OF PT'S C/O FORGETFULNESS. LEFT VOICEMAIL TO HIS OFFICE.
[2020-09-14] MEDS: HYDROCODONE/APAP 5/325MG TABLET PO PRN (18:31)
--- NOTE | 2020-09-14 18:32 | NUR ---
rRN-CO: NORCO WAS GIVEN FOR C/O NECK PAIN 04/01.
[2020-09-14 20:19] VITALS: BP 107/62
[2020-09-15] MEDS: HYDROCODONE/APAP 5/325MG TABLET PO PRN ×3 (04:08→21:28)
--- NOTE | 2020-09-15 04:08 | NUR ---
GPS RN NOTE: PAIN PT C/O OF 04/01 NECK PAIN, REQUESTED AMANDA PATEL, ADMIN 1 TAB AMANDA PRN @ 6574, WILL REASSESS AND CONTINUE TO MONITOR Q15MIN FOR SAFETY AND BEHAVIOR.
[2020-09-15] MEDS: clonazePAM 0.5 MG TABLET PO PRN ×2 (06:34→19:56)
--- NOTE | 2020-09-15 06:34 | NUR ---
GPS RN NOTE: ANXIETY PT C/O OF ANXIETY OF RESTLESSNESS, REQUESTED KLONOPIN, ADMIN KLONOPIN 0.5MG PRN @ 0634, WILL REASSESS AND CONTINUE TO MONITOR Q15MIN FOR SAFETY AND BEHAVIOR.
[2020-09-15 08:24] VITALS: BP 101/58
[2020-09-15] MEDS: ENSURE ENLIVE CHOC 237 ML CAN PO SCH ×2 (08:39→16:49)
[2020-09-15] MEDS: QUETIAPINE FUMARATE 100 MG TABLET PO SCH ×2 (08:39→21:23)
[2020-09-15] MEDS: LISINOPRIL (10MG) 10 MG TABLET PO SCH (08:40)
[2020-09-15] MEDS: BENZTROPINE MESYLATE (1 MG) 1 MG TABLET PO SCH ×2 (08:40→21:00)
--- NOTE | 2020-09-15 13:57 | NUR ---
RN NOTES ADMINISTERED NARCO 5/325 MG PO PRN FOR GENERALIZED PAIN 04/01 PER PATIENT REQUEST. V/S TAKEN. BP 106/58, P-68. CONTINUED MONITORING.
[2020-09-15 16:40] VITALS: BP 101/57
--- NOTE | 2020-09-15 19:56 | NUR ---
GPS RN NOTE: ANXIETY PT C/O OF ANXIETY REQUESTED DWAYNEONOALLAN, VSS, NO DISTRESS NOTED, ADMIN KLONOPIN MG PRN @ 5972, WILL REASSESS AND CONTINUE TO MONITOR Q15MIN FOR SAFETY AND BEHAVIOR. Addendum: 09/15/20 at 1956 by KRISHNA WOOTEN RN CORRECTION ADMIN @ 1955
[2020-09-15 20:00] VITALS: BP 113/54
--- NOTE | 2020-09-15 21:28 | NUR ---
GPS RN NOTE: PAIN PT C/O OF 04/01 NECK PAIN, REQUESTED AMANDA PATEL ADMIN 1 TAB AMANDA PRN @ 1927, WILL REASSESS AND CONTINUE TO MONITOR Q15MIN FOR SAFETY AND BEHAVIOR. Addendum: 09/15/20 at 2128 by KRISHNA WOOTEN RN CORRECTION ADMIN @ 2127
[2020-09-16] MEDS: BENZTROPINE MESYLATE (1 MG) 1 MG TABLET PO SCH ×2 (08:23→21:00)
[2020-09-16] MEDS: ENSURE ENLIVE CHOC 237 ML CAN PO SCH ×2 (08:23→16:51)
[2020-09-16] MEDS: LISINOPRIL (10MG) 10 MG TABLET PO SCH (08:23)
[2020-09-16] MEDS: QUETIAPINE FUMARATE 100 MG TABLET PO SCH ×2 (08:23→21:23)
[2020-09-16] MEDS: clonazePAM 0.5 MG TABLET PO PRN (08:29)
--- NOTE | 2020-09-16 08:31 | NUR ---
RN NOTE- PT W ANXIETY. KLONOPIN 0.5 MG GIVEN
--- NOTE | 2020-09-16 09:00 | NUR ---
RN NOTE- PT OOB AMBULATORY IN HALLS VISIBLE IN UNIT. PO INTAKE GOOD, MED COMPLIANT THOUGH REFUSES COGENTIN. KLONOPIN FOR RESTLESSNESS. DENIES SI THE [facility]
[2020-09-16 14:55] VITALS: BP 105/62
[2020-09-16 16:00] VITALS: BP 105/62
[2020-09-16 21:06] VITALS: BP 125/72
--- NOTE | 2020-09-16 21:28 | NUR ---
GPS RN NOTE: MEDICATION REFUSAL PT. REFUSED SCHEDULED 2100 COGENTIN 1MG PO. EXPLAINED RISKS AND BENEFITS. OFFERED 3 X AND STILL REFUSED. WILL CONTINUE TO MONITOR
[2020-09-16] MEDS: HYDROCODONE/APAP 5/325MG TABLET PO PRN (22:20)
--- NOTE | 2020-09-16 22:25 | NUR ---
GPS RN NOTE: PAIN PT C/O OF 06/02 NECK PAIN, REQUESTED NORCO, ADMIN 1 TAB NORCO PRN , WILL REASSESS AND CONTINUE TO MONITOR Q15MIN FOR SAFETY AND BEHAVIOR.
[2020-09-17 08:00] VITALS: BP 110/57
[2020-09-17] MEDS: QUETIAPINE FUMARATE 100 MG TABLET PO SCH ×2 (08:19→21:12)
[2020-09-17] MEDS: BENZTROPINE MESYLATE (1 MG) 1 MG TABLET PO SCH ×2 (08:20→21:00)
[2020-09-17] MEDS: LISINOPRIL (10MG) 10 MG TABLET PO SCH (08:21)
[2020-09-17] MEDS: HYDROCODONE/APAP 5/325MG TABLET PO PRN ×2 (08:26→19:32)
--- NOTE | 2020-09-17 08:26 | NUR ---
GPS RN NOTES: PATIENT REQUESTED FOR NORCO MEDICATION FOR HIS NECK PAIN 04/01- NORCO 5/325 MG GIVEN ORALLY. PATIENT THEN REFUSED HIS COGENTIN AND LISINOPRIL MEDICATION ON SCHEDULE- PER PATIENT HE DOES NOT NEED IT.
[2020-09-17] MEDS: ENSURE ENLIVE CHOC 237 ML CAN PO SCH ×2 (08:50→17:07)
[2020-09-17 16:01] VITALS: BP 115/79
--- NOTE | 2020-09-17 19:30 | NUR ---
GPS RN NOTE, RECEIVED PATIENT AWAKE AND IN BED, HAS C/O NECK PAIN AT 5 OUT OF 10 ON THE PAIN SCALE. PATIENT IS TAKING ORAL PAIN MEDICATION FOR THIS PAIN. PATIENT IS DISPLAYING NO S/S OF APPARENT DISTRESS AT THIS TIME. PATIENT BREATHING IS UNLABORED WITH EQUAL RISE AND FALL OF THE CHEST. PATIENT IS ALERT AND ORIENTED X 3 ON ROOM AIR WITH A SPO2 99%. PATIENT IS TAKING MEDICATIONS, ANXIOUS AT TIMES, CALM, AND COOPERATIVE. PATIENT DENIES SUICIDAL AND HOMICIDAL IDEATIONS AT THIS TIME. PATIENT ASSISTED WITH TURNING AND REPOSITIONING Q2HR AND PRN FOR COMFORT AND CIRCULATION. PATIENT HAS NO NEEDS AT THIS TIME. PATIENT EDUCATED ON THE USE OF THE CALL MCCARTHY. PATIENT BED SIDE RAILS UP X 2 FOR SAFETY. PATIENT BED IS LOCKED, LOW, WITH BED ALARM ON. WILL CONTINUE TO MONITOR THIS PATIENT Q15 MINUTES WITH THE HELP OF STAFF TO MAINTAIN SAFETY.
--- NOTE | 2020-09-17 19:33 | NUR ---
GPS RN NOTE, PATIENT HAS A COMPLAINT OF NECK PAIN AT 5 OUT 10 ON THE PAIN SCALE AND IS REQUESTING NORCO AT THIS TIME. PATIENT VITAL SIGNS ARE STABLE. GAVE NORCO 5-325 PO Q6HR PRN ORDERED ALL ORDERED. WILL CONTINUE TO MONITOR THIS PATIENT.
[2020-09-17 19:58] VITALS: BP 120/71
[2020-09-17] MEDS: clonazePAM 0.5 MG TABLET PO PRN (20:34)
--- NOTE | 2020-09-17 20:34 | NUR ---
GPS RN NOTE, PATIENT HAS A COMPLAINT OF FEELING ANXIOUS AND IS REQUESTING KLONOPIN AT THIS TIME. PATIENT VITAL SIGNS ARE STABLE. GAVE KLONOPIN 0.5MG PO Q4HR PRN ORDERED. WILL REASSESS FOR ANXIETY AND I WILL CONTINUE TO MONITOR THIS PATIENT.
[2020-09-18] MEDS: QUETIAPINE FUMARATE 100 MG TABLET PO SCH ×2 (08:11→21:24)
[2020-09-18] MEDS: ENSURE ENLIVE CHOC 237 ML CAN PO SCH ×2 (08:11→16:11)
[2020-09-18] MEDS: LISINOPRIL (10MG) 10 MG TABLET PO SCH (08:12)
[2020-09-18] MEDS: BENZTROPINE MESYLATE (1 MG) 1 MG TABLET PO SCH ×2 (08:12→21:00)
[2020-09-18] MEDS: clonazePAM 0.5 MG TABLET PO PRN ×2 (08:28→22:16)
--- NOTE | 2020-09-18 08:28 | NUR ---
RN NOTE- PT W ANXIETY.. KLONOPIN 0.5 MG GIVEN
--- NOTE | 2020-09-18 09:00 | NUR ---
RN NOTE- PT VISIBLE ON UNIT, CALM INTERACTIVE, MED COMPLIANT, PO INTAKE GOOD DENIES SI HI [facility] VH, WATCHING TV, TOOK KLONOPIN 0.5 MG EARLY IN SHIFT FOR RESTLESSNESS. EFFECTIVE RX.
[2020-09-18 15:52] VITALS: BP_SYST 106; BP_SYST 120; BP_DIAS 63; BP_DIAS 76
[2020-09-18 20:02] VITALS: BP 124/78
[2020-09-18 20:36] VITALS: BP 124/78
--- NOTE | 2020-09-18 21:25 | NUR ---
GPS RN NOTE: REFUSED COGENTIN PATIENT REFUSED COGENTIN 1MG PO Q12HR SCHEDULED, EDUCATED PATIENT ON THE RISKS AND BENEFITS OF TAKING AND REFUSING COGENTIN, BUT PATIENT CONTINUED TO REFUSE MEDICINE X 3. WILL CONTINUE TO MONITOR THE PATIENT.
--- NOTE | 2020-09-18 22:18 | NUR ---
GPS RN NOTE: ANXIETY PATIENT VERBALIZED FEELING ANXIOUS, RESTLESS & UNABLE TO SLEEP & REQUESTED TO GET KLONOPIN. PRN KLONOPIN 0.5 MG 1 TAB PO GIVEN. WILL CONTINUE TO MONITOR.
[2020-09-19 08:00] VITALS: BP 109/61
[2020-09-19] MEDS: ENSURE ENLIVE CHOC 237 ML CAN PO SCH ×2 (08:00→17:00)
[2020-09-19] MEDS: LISINOPRIL (10MG) 10 MG TABLET PO SCH (09:00)
[2020-09-19] MEDS: QUETIAPINE FUMARATE 100 MG TABLET PO SCH ×2 (09:13→21:17)
[2020-09-19] MEDS: BENZTROPINE MESYLATE (1 MG) 1 MG TABLET PO SCH ×2 (09:13→21:00)
--- NOTE | 2020-09-19 11:16 | NUR ---
SNF Referral: ALMA ROSA faxed a referral to [facility] with attn to Kaycee to the fax number: [phone].
--- NOTE | 2020-09-19 12:25 | NUR ---
SNF Contact: Adelaide ([phone]) from [facility] ([facility]) called the SW and stated that the pt was accepted to their facility.
[2020-09-19] MEDS: HYDROCODONE/APAP 5/325MG TABLET PO PRN (20:11)
--- NOTE | 2020-09-19 20:11 | NUR ---
GPS RN NOTE: OAIN PT C/O OF 04/01 NECK PAIN, REQUESTED AMANDA PATEL AT THIS TIME, ADMIN 1 TAB AMANDA PRN @ 2010, WILL REASSESS AND CONTINUE TO MONITOR Q15MIN FOR SAFETY AND BEHAVIOR.
--- NOTE | 2020-09-19 20:13 | NUR ---
GPS RN NOTE: PAIN*
[2020-09-19 20:36] VITALS: BP 124/87
[2020-09-19] MEDS: clonazePAM 0.5 MG TABLET PO PRN (23:35)
--- NOTE | 2020-09-19 23:36 | NUR ---
GPS RN NOTE: ANXIETY PT WOKE UP ASKING FOR KLONOPIN, CLAIMED HE WAS FEELING ANXIOUS AND RESTLESS, VSS, ADMIN CLONAZEPAM 0.5MG @ 2335. WILL REASSESS AND CONTINUE TO MONITOR Q15MIN FOR SAFETY AND BEHAVIOR.
[2020-09-20 08:21] VITALS: BP 97/48
--- NOTE | 2020-09-20 08:25 | NUR ---
Individual Intervention with the pt: ALMA ROSA informed the pt that she spoke with the pts MD and he stated that the pt is ready for discharge today. Pt stated that he felt content about that and wanted to be discharged. SW informed him that he was accepted to [facility] and the pt refused. Pt stated, "I do not want to be placed in a detention. I want to be discharged to the streets so that I can make my own decisions and fend for myself. No one is locking me up." SW stated that as the pt has the right to make his own decisions he will be discharged according to his choosing to the streets.
[2020-09-20 08:27] VITALS: BP 119/68
[2020-09-20 08:30] VITALS: BP 119/68
[2020-09-20] MEDS: BENZTROPINE MESYLATE (1 MG) 1 MG TABLET PO SCH (08:30)
[2020-09-20] MEDS: LISINOPRIL (10MG) 10 MG TABLET PO SCH (08:30)
[2020-09-20] MEDS: ENSURE ENLIVE CHOC 237 ML CAN PO SCH (08:30)
[2020-09-20] MEDS: QUETIAPINE FUMARATE 100 MG TABLET PO SCH (08:30)
--- NOTE | 2020-09-20 08:56 | NUR ---
Discharge Note: Patient is choosing to be discharged to the streets. Pt does not need a TAP card as the buses are not requiring compensation for their services during this time. Patient is aware and agreeable with discharge plans and states that he will be making his way towards the [facility]. Pt has denied SNF placement and fdc placement. Pt was accepted to [facility] ([facility]) but refused to be discharged there. Patient denies suicidal or homicidal ideation as well as auditory and visual hallucinations. Patient presents as alert and oriented x4 (time, place, self and situation). Pt presents with a dysphoric mood and presents with a distressed and agitated affect. Patient is referred to [facility] [address] [place] [address] ([phone]) for outpatient psychiatric services and supplier quality specialist consultation. ALMA ROSA provided patient with the [phone] [facility] Mc[facility] Program list. SW provided patient with a copy of the [facility] homeless directory which provides information on locations for hot meals, sack lunches, food pantries, and showers. SW provided an additional list of mental health clinics: [facility] [address] [place] [address] ([phone]); [facility] [address] [place] [address] ([phone]); a list of medical clinics; [facility] [address], [place]. [place], ; [facility] [address], [address], [place]. ALMA ROSA Provided [facility] [address] [place] [address]: ([phone]). Patient was provided with a brief substance abuse intervention and referred to the following substance abuse programs: [facility] Substance Abuse Self-helpline ([phone]); [facility] [address] [place] [address] ([phone]); [facility] [address] [facility] [address] ([phone]); [facility] ([phone]); [facility] ([phone]); [facility] ([phone]); [facility] ([phone]). Patient signed the homeless waiver upon discharge and a copy was placed in the chart with all of the resources that were provided. The multidisciplinary exit care form was done, printed, signed, and given to the patient.
--- NOTE | 2020-09-20 11:35 | NUR ---
AIRWORTHINESS INSPECTOR NOTE- PT DC TO STREET AT THIS TIME PER PT DECISION. PT IS ALERT ORIENTED TO PERSON PLACE TIME AND PURPOSE. HE DENIES SI HI [facility] VH AT PRESENT MOMENT. PT VS ARE STABLE, HE IS CALM AND INTERACTIVE. PT MEDS AND AFTERCARE INSTRUCTIONS WERE REVIEWED AND VERBALIZED UNDERSTANDING RETURNED. SKIN INTACT. PT REFUSED PNA AND FLU VACCINES. VALUABLES RETURNED TO PT AND SIGNED FOR. ID [id number] REMOVED. ESCORTED OFF UNIT BY THIS RN.
== END 2020-09-20 11:35 | disposition home or self-care (01) | DRG 885 ==
LOC: GPS 21:15
PROVIDERS: ADMIT Psychiatry & Neurology Psychiatry; ATTEND Nurse Practitioner Acute Care
DX: F20.0 Paranoid schizophrenia (principal); F43.10 Post-traumatic stress disorder, unspecified; I10 Essential (primary) hypertension; Z59.0 Homelessness; F17.200 Nicotine dependence, unspecified, uncomplicated; F29 Unspecified psychosis not due to a substance or known physiological condition; F41.9 Anxiety disorder, unspecified; F32.9 Major depressive disorder, single episode, unspecified; X58.XXXA Exposure to other specified factors, initial encounter; Y92.9 Unspecified place or not applicable; G24.01 Drug induced subacute dyskinesia; M25.511 Pain in right shoulder
CPT/HCPCS: 36415; 80048-TC; 80061-TC; 81001; 82962-TC; 85025-TC; 87081-TC; 97110-TC; 97112-TC; 97116-TC; 97530-TC

== ENCOUNTER 2021-07-30 12:57 | Emergency (ER) | payer MEDICARE, OTHER ==
[~2021-07-30] VITALS: Ht 180.3 cm; Wt 90.7 kg
[~2021-07-30 12:57] MED LIST changes: +IBUP-1957 PO; +LISI10TA29 MT; -LISI10TA5 MT; -LORA-259 PO; -OMEP40CA13 MT; -QUET300T2 MT
[2021-07-30 14:02] LABS: BASOPHILS % (AUTO) 0.4 % (0.0-2.0); EOSINOPHILS % (AUTO) 1.6 % (0.0-6.0); HEMATOCRIT 37 % (39-51); HEMOGLOBIN 11.7 g/dL (13.5-17.5); LYMPHOCYTES # (AUTO) 1.2 K/uL (0.8-4.8); LYMPHOCYTES % (AUTO) 17.6 % (20.0-44.0); MEAN CORPUSCULAR HGB CONC 32 g/dl (31.0-36.0); MEAN CORPUSCULAR VOLUME 88 fL (80-96); MONOCYTES # (AUTO) 0.4 K/uL (0.1-1.30); MONOCYTES % (AUTO) 5.7 % (2.0-12.0); NEUTROPHILS % (AUTO) 74.7 % (43.0-81.0); PLATELET COUNT (AUTO) 281 K/uL (150-450); RED BLOOD CELL COUNT(AUTO) 4.21 MIL/uL (4.5-6.0); WHITE BLOOD COUNT (AUTO) 6.6 K/uL (4.3-11.0)
--- NOTE | 2021-07-30 14:42 | NUR ---
COVID SWAB DONE AND SENT TO THE LAB
[2021-07-30 14:49] LABS: ALANINE AMINOTRANSFERASE 33 U/L (12-78); ALBUMIN 3.5 g/dL (3.4-5.0); ALCOHOL, BLOOD < 3 mg/dL (0-0); ALKALINE PHOSPHATASE 49 U/L (46-116); ASPARTATE AMINOTRANSFERASE 33 U/L (15-37); BILIRUBIN,DIRECT 0.1 mg/dL (0.0-0.2); BILIRUBIN,TOTAL 0.5 mg/dL (0.2-1.0); CALCIUM, SERUM 8.5 mg/dL (8.5-10.1); CARBON DIOXIDE 26 mmol/L (21-32); CHLORIDE 106 mmol/L (98-107); CREATININE 1.1 mg/dL (0.6-1.3); GLUCOSE 93 mg/dL (74-106); POTASSIUM 3.6 mmol/L (3.5-5.1); SODIUM SERUM 142 mmol/L (136-145); TOTAL PROTEIN, SERUM 7.3 g/dL (6.4-8.2); UREA NITROGEN, BLOOD 13 mg/dL (7-18)
[2021-07-30 15:03] LABS: ACETAMINOPHEN 0 ug/ml (10-30)
--- NOTE | 2021-07-30 16:33 | NUR ---
URINE COLLECTED AND SENT TO LAB
[2021-07-30 16:39] LABS: BILIRUBIN,URINE NEGATIVE (NEGATIVE); COLOR,URINE YELLOW (YELLOW); LEUKOCYTE ESTERASE ,URINE NEGATIVE (NEGATIVE); NITRITE, URINE NEGATIVE (NEGATIVE); PROTEIN,URINE NEGATIVE (NEGATIVE); UGLUCOSE NEGATIVE (NEGATIVE)
[2021-07-30 17:03] LABS: BACTERIA,URINE None seen /HPF (None Seen); RBC,URINE 0-2 /HPF (0-2); SQUAMOUS EPITHELIAL CELL,UR 0-2 /HPF (None Seen); URINE AMORPHOUS PHOSPHATES Moderate /HPF (None Seen); WBC,URINE 0-2 /HPF (0-3)
--- NOTE | 2021-07-30 20:00 | NUR ---
CLINICALS FAXED TO [facility] INTAKE
--- NOTE | 2021-07-30 21:32 | NUR ---
CALLED [facility] FOR F/U. CARLOS WILL CALL ME BACK
--- NOTE | 2021-07-30 22:59 | NUR ---
PT IS CALM, COOPERATIVE AND SLEEPING. VITALS APPEAR STABLE
--- NOTE | 2021-07-31 02:51 | NUR ---
PT RESTING IN BED .BREATHING EVNLY. NO SOB. NO ACUTE DISTRESS. CALM AND COPPERATIVE. WILL CONT TO MONITOR ,
--- NOTE | 2021-07-31 03:20 | NUR ---
CLINICALS AND FACE SHEET FAXED TO [facility]
--- NOTE | 2021-07-31 03:44 | NUR ---
PER STACEY AT [facility] PT GOT ACCEPTED AT [facility] BY DR MUÑOZ AND DELMY. PLEASE ARRANGE TRANSPORTATION AFTER THE SHIFT CHANGE
--- NOTE | 2021-07-31 03:46 | NUR ---
SPOKE TO CHARGE NURSE AT [facility]. OK TO ARRANGE TRANSPORTATION AT 0900. [facility] ARRANGED FOR 0900.
[2021-07-31 09:17] VITALS: BP 118/77
--- NOTE | 2021-07-31 09:19 | NUR ---
patient picked up by private ambulance in no distress going to [facility].
== END 2021-07-31 09:19 ==
LOC: ER 12:59
DX: R45.851 Suicidal ideations (principal); F14.10 Cocaine abuse, uncomplicated; D64.9 Anemia, unspecified; Z59.02 Unsheltered homelessness; Z20.822 Contact with and (suspected) exposure to COVID-19; I10 Essential (primary) hypertension; G24.01 Drug induced subacute dyskinesia; F43.10 Post-traumatic stress disorder, unspecified; Z88.8 Allergy status to other drugs, medicaments and biological substances; Z79.899 Other long term (current) drug therapy
CPT/HCPCS: 36415; 80048-TC; 80076-TC; 81001; 85025-TC; C9803; G0480

== ENCOUNTER 2021-10-29 21:05 | Emergency (ER) | payer MEDICARE ==
[~2021-10-29] VITALS: Ht 180.3 cm; Wt 108.9 kg
[2021-10-29 22:09] LABS: BASOPHILS % (AUTO) 0.7 % (0.0-2.0); EOSINOPHILS % (AUTO) 1.5 % (0.0-6.0); HEMATOCRIT 38 % (39-51); HEMOGLOBIN 12.5 g/dL (13.5-17.5); LYMPHOCYTES # (AUTO) 2.4 K/uL (0.8-4.8); LYMPHOCYTES % (AUTO) 32.3 % (20.0-44.0); MEAN CORPUSCULAR HGB CONC 33 g/dl (31.0-36.0); MEAN CORPUSCULAR VOLUME 84 fL (80-96); MONOCYTES # (AUTO) 0.9 K/uL (0.1-1.30); MONOCYTES % (AUTO) 11.9 % (2.0-12.0); NEUTROPHILS % (AUTO) 53.6 % (43.0-81.0); PLATELET COUNT (AUTO) 230 K/uL (150-450); RED BLOOD CELL COUNT(AUTO) 4.54 MIL/uL (4.5-6.0); WHITE BLOOD COUNT (AUTO) 7.4 K/uL (4.3-11.0)
[2021-10-29 22:15] VITALS: BP 119/80
--- NOTE | 2021-10-29 22:15 | NUR ---
BIBS FOR C/O HEARING VOICES TELLING HIM TO [facility]. REQUESTING VOLUNTARY PSYCH ADMISSION. PT A/OX3. TOLERATING R/A WELL WITH NO SOB. SAFETY 1:[address]
[2021-10-29 22:27] LABS: ALANINE AMINOTRANSFERASE 62 U/L (12-78); ALBUMIN 3.6 g/dL (3.4-5.0); ALKALINE PHOSPHATASE 54 U/L (46-116); ASPARTATE AMINOTRANSFERASE 61 U/L (15-37); BILIRUBIN,DIRECT 0.2 mg/dL (0.0-0.2); BILIRUBIN,TOTAL 0.8 mg/dL (0.2-1.0); CALCIUM, SERUM 8.7 mg/dL (8.5-10.1); CARBON DIOXIDE 27 mmol/L (21-32); CHLORIDE 106 mmol/L (98-107); CREATININE 1.2 mg/dL (0.6-1.3); GLUCOSE 124 mg/dL (74-106); POTASSIUM 3.7 mmol/L (3.5-5.1); SODIUM SERUM 142 mmol/L (136-145); TOTAL PROTEIN, SERUM 7.4 g/dL (6.4-8.2); UREA NITROGEN, BLOOD 23 mg/dL (7-18)
[2021-10-29 22:34] LABS: BILIRUBIN,URINE NEGATIVE (NEGATIVE); COLOR,URINE YELLOW (YELLOW); LEUKOCYTE ESTERASE ,URINE NEGATIVE (NEGATIVE); NITRITE, URINE NEGATIVE (NEGATIVE); PROTEIN,URINE NEGATIVE (NEGATIVE); UGLUCOSE NEGATIVE (NEGATIVE)
[2021-10-29 22:41] LABS: ACETAMINOPHEN 0 ug/ml (10-30); ALCOHOL, BLOOD < 3 mg/dL (0-0)
--- NOTE | 2021-10-29 23:56 | NUR ---
PT'S BELT AT NURSING STATION
--- NOTE | 2021-10-30 00:30 | NUR ---
FACESHEET AND CLINICALS FAXED TO [facility].
--- NOTE | 2021-10-30 04:54 | NUR ---
ACCEPTED AT [facility] ACCEPTING MD DR PENA AND DR DAVIDSON NUMBER FOR REPORT
--- NOTE | 2021-10-30 05:41 | NUR ---
REPORT GIVEN TO SIRI AT [facility] 20 MINS
--- NOTE | 2021-10-30 06:05 | NUR ---
[facility] AT BEDSIDE FOR TRANSPORT.
== END 2021-10-30 06:07 ==
LOC: ER 21:07
DX: R45.851 Suicidal ideations (principal); Z59.01 Sheltered homelessness; I10 Essential (primary) hypertension; F43.10 Post-traumatic stress disorder, unspecified; F20.9 Schizophrenia, unspecified; Z88.8 Allergy status to other drugs, medicaments and biological substances
CPT/HCPCS: 36415; 80048-TC; 80076-TC; 85025-TC; C9803; G0480